=== PATIENT | male | born 1960 | race Caucasian/White ===

== ENCOUNTER 2016-06-25 17:04 | Inpatient (IN) | payer MEDICARE ==
--- NOTE | ~2016-06-25 | CT2 ---
[facility] A Service of [facility] RADIOLOGY TEXT RESULTS PATIENT: SOFIE COLEMAN LOCATION: [facility] 342- : 58 UNIT #: [id number] AGE: [address]: Chelsey Kwong MD SEX: M ORDER DR: [id number] [facility] [address] [place], [place] [address] [id number] I MR#: [id number] Acc #: [id number] NAME: SOFIE COLEMAN : 1960 SEX: M STUDY DATE/TIME: 06/25/2016 18:13 UNIT: A PCU ROOM: [facility] STUDY DESCRIPTION: CT Abd and Pelv W Cont Attending Physician: Chula Colvin M.D. Ordering Physician: Prema Sellers M.D. Primary Care Physician: Phoebe Morales M.D. MEDICAL IMAGING REPORT This report is preliminary unless electronic signature is present EXAM CT abdomen and pelvis INDICATIONS Diffuse lymphadenopathy. Pelvic mass. Left inguinal lymphadenopathy. TECHNIQUE CT of the abdomen and pelvis with 100 mL Isovue-370 IV contrast. Coronal and sagittal reconstructions were obtained. This CT exam was performed with one or more of the following radiation dose reduction techniques: automatic exposure control, adjustment of mA and/or kV according to patient size, and iterative reconstruction. COMPARISON None available. FINDINGS There is diffuse lymphadenopathy in the upper abdomen. An index periportal lymph node measures 4.4 x 3.2 cm. There are several retrocrural lymph nodes. The spleen is normal in size. The lymphadenopathy extends in the retroperitoneum. Retroperitoneal lymph node near the level of the left renal veins measures 2.3 x 1.7 cm. There is no focal abnormality in the liver, pancreas, or adrenal glands. There are multiple low-attenuation lesions scattered throughout the kidney. The largest measures up to 3.6 cm. These do not have imaging characteristics of a benign cysts. The right kidney is either congenitally atrophic or surgically absent. There is bulky mesenteric lymph nodes as well. Index mesenteric lymph node in the right abdomen measures 2.1 x 1.9 cm. [facility] A Service of [facility] RADIOLOGY TEXT RESULTS PATIENT: SOFIE COLEMAN LOCATION: [facility] 342-01 : 58 UNIT #: [id number] AGE: [address]: Chelsey Kwong MD SEX: M ORDER DR: Pelvis: There is bulky pelvic lymphadenopathy, particularly on the left. A left external iliac lymph node measures 4.4 x 3.0 cm. A left inguinal lymph node measures 4.7 x 4.1 cm. No acute osseous abnormalities. IMPRESSION 1. Bulky lymphadenopathy throughout the abdomen and pelvis likely represents a lymphoma, however, diffuse metastatic disease is additional consideration. If biopsy is appropriate, consider a biopsy of the supraclavicular or left inguinal lymph nodes. 2. Multiple low-attenuation lesions throughout the left kidney. These do not have imaging appearance typical for benign cysts, however incompletely characterized. This could represent lymphomatous involvement of the left kidney or be secondary to a proteinaceous hemorrhagic cyst. Benign etiology is considered less likely. 3. Right kidney is either congenitally atrophic or surgically absent. Dictated by... Raf Gonzales M.D. THIS IS AN ELECTRONICALLY VERIFIED REPORT Raf Gonzales M.D. at 06/26/2016 2:30 PM DAVIS/maegan TD: 06/25/2016 23:19 JOB #: [id number] MEDICAL IMAGING REPORT Page 1 of 1 COPY
--- NOTE | ~2016-06-25 | CO ---
Unit #: [id number] #: [id number] Patient: SOFIE COLEMAN [id number] [address] [place], [place] [address] [id number] I MR#: [id number] NAME: SOFIE COLEMAN ROOM: 342 Age: 56 Sex: M Admission Date: 06/25/2016 : 1960 Attending Physician: Chelsey Kwong M.D. Primary Care Physician: Phoebe Morales M.D. Consultation Date: 06/26/2016 CONSULTATION REPORT REASON FOR CONSULTATION Massive lymphadenopathy. Please evaluate. HISTORY OF PRESENT ILLNESS The patient is a 56-year-old gentleman whom I had seen December last year for elevated white count and workup was negative. At that time he had no adenopathy. He presents now with supraclavicular small axillary and large groin lymph nodes, about 10 pound weight loss and no night sweats or very minimal night sweats. We were requested to evaluate. PAST MEDICAL HISTORY 1. Coronary artery disease. 2. Status post two vessel coronary artery bypass grafting. 3. Hypertension. 4. Depression. 5. Hyperlipidemia. PAST SURGICAL HISTORY 1. Cholecystectomy. 2. Hernia. 3. Appendectomy. SOCIAL HISTORY The patient smokes less than a pack per day, multiple decades. No alcohol usage. No drug usage. Lives with daughter and granddaughter. FAMILY HISTORY Negative for unusual tumors or hereditary tumors. Positive for hypertension. ALLERGIES No known drug allergies. CHRONIC MEDICATIONS 1. Synthroid. 2. Lipitor. 3. Acyclovir. 4. Plavix. 5. Avoca. 6. Metoprolol. 7. Zoloft. 8. Zanaflex. REVIEW OF SYSTEMS Unit #: [id number] #: [id number] Patient: SOFIE COLEMAN Mainly tiredness, decreased appetite, some night sweats and weight loss and masses he has felt in the neck, mainly in the last two to four weeks. Otherwise six or eight systems were within normal limits. PHYSICAL EXAMINATION LYMPH: Very large supraclavicular and cervical lymph nodes. LUNGS: Clear. HEART: Distant S1 and S2. ABDOMEN: No organomegaly. EXTREMITIES: Left groin lymph node is palpable. Right groin is not palpable. NEUROLOGIC: grossly intact. RECTAL: Not performed. DIAGNOSTIC STUDIES IMAGING: CT scans were reviewed. CT scan of the head done 06/25/2016 showed no evidence of metastatic disease, so essentially it was normal. CT scan of the neck, massive lymphadenopathy asymmetrical, worse on the right than the left. CT scan of the chest was done as CT angiogram and it shows negative for pulmonary embolus, diffuse bulky lymphadenopathy, and a 1.4 cm pulmonary nodule in the right lower lobe. Trace right pleural effusion. CT abdomen bulky lymphadenopathy throughout the abdomen and pelvis. Most importantly there is a 4.7 x 4.1 cm left inguinal lymph node which is palpable. Right-sided iliac lymph nodes. LABORATORY: Glucose 82, BUN 19, creatinine 1.1, sodium 128, potassium 4.5, chloride 99, CO2 18, total bilirubin 0.9, AST 18, ALT 15, alkaline phosphatase 78. CBC, hemoglobin 9.5, hematocrit 30.6, white blood cell count 20.9, MCV 74.6, platelets 543,000. ASSESSMENT This 56-year-old gentleman with massive adenopathy, minimal night sweats, 10 pound weight loss, most probably has a non-Hodgkin lymphoma or Hodgkin disease. PLAN Will approach the left inguinal lymph node with a fine-needle aspirate, flow cytometry. If that tells us what we need to know we will stop there, but in case it does not, then we will need a left inguinal lymph node biopsy in case it is Hodgkin disease. All of this was discussed with the patient. He is in full agreement. Dictated by... Ramone Dan/ella TD: 06/26/2016 15:15 JOB #: [id number] CC: Arnold Smith M.D. Unit #: [id number] #: [id number] Patient: SOFIE COLEMAN CONSULTATION REPORT Page 1 of 1 X Alex Del Rio MD CONSULTATION REPORT
--- NOTE | ~2016-06-25 | MAL ---
[facility] Nutrition Therapy DATE: 06/29/16 Patient: SOFIE COLEMAN Physician: ARGENIS Address: [address] [place] [address] Room/Bed: [address] [place] [address], [facility], Zip: [place] [address] Admit Date: 06/25/16 Date of : 58 Height: 5 10 Weight: 149 68 PHYSICAL MALNUTRITION ASSESSMENT Energy Intake, Acute Injury/Illness Moderately reduced: <75% needs for >7 days Energy Intake Comment: Poor intake and decreased appetite x 2 weeks LOOP CUTTER Weight Loss, Acute Injury/Illness Severe: >2% past 1 week Weight Loss, Comment: 5.5% body weight loss in 13 days LOOP CUTTER Physical Findings Body Fat and Muscle Mass Moderate: (suggested) some loss of subqutaneous fat and/or muscle mass Physical Findings Functional Capacity Moderate: (suggested) reduced functional capacity Physical Findings Comment: Slight temporal wasting noted Malnutrition Survey Results: Malnutrition identified Malnutrition Etiology Summary: Acute injury/illness moderate Malnutrition Survey Comment: See follow-up note dated today for details and recs. Respectfully, Marilee Morrison RD, LD [facility] and Nutritional Services [facility] cc: client file
--- NOTE | ~2016-06-25 | CT71 ---
[facility] A Service of [facility] RADIOLOGY TEXT RESULTS PATIENT: SOFIE COLEMAN LOCATION: [facility] 342 : 58 UNIT #: [id number] AGE: [address]: Chula Colvin MD SEX: M ORDER DR: [id number] [place] [id number] [facility]. [place], [place] [address] [id number] I MR#: [id number] Acc #: [id number] NAME: SOFIE COLEMAN : 1960 SEX: M STUDY DATE/TIME: 06/25/2016 18:04 UNIT: [address] ROOM: [facility] STUDY DESCRIPTION: CT Head Wo Contrast Attending Physician: Chula Colvin M.D. Ordering Physician: Prema Sellers M.D. Primary Care Physician: Phoebe Morales M.D. MEDICAL IMAGING REPORT This report is preliminary unless electronic signature is present EXAM CT brain without contrast, 06/25/2016 HISTORY Headache and dizzy today. Weakness. This CT exam was performed with one or more of the following radiation dose reduction techniques: automatic exposure control, adjustment of mA and/or kV according to patient size, and iterative reconstruction. FINDINGS Axial noncontrast images were obtained from the skull base to the vertex. Ventricular size and configuration are normal. There is no evidence of acute infarct or hemorrhage. There are no extra-axial fluid collections. No mass lesion or mass effect is seen. There are no skull fractures. IMPRESSION Normal noncontrast head CT. Dictated by... Luis M Machado M.D. THIS IS AN ELECTRONICALLY VERIFIED REPORT Luis M Machado M.D. at 06/25/2016 10:37 PM CORONA/keegan TD: 06/25/2016 22:28 JOB #: [id number] MEDICAL IMAGING REPORT [facility] A Service of [facility] RADIOLOGY TEXT RESULTS PATIENT: SOFIE COLEMAN LOCATION: [facility] 342- : 58 UNIT #: [id number] AGE: [address]: Chula Colvin MD SEX: M ORDER DR: Page 1 of 1 COPY
--- NOTE | ~2016-06-25 | XA55 ---
[facility] A Service of [facility] & [facility] RADIOLOGY TEXT RESULTS PATIENT: SOFIE RAND LOCATION: [facility] 342-01 : 58 UNIT #: [id number] AGE: [address]: Chelsey Kwong MD SEX: M ORDER DR: [id number] [facility]. [place], [place] [address] [id number] I MR#: [id number] Acc #: [id number] NAME: SOFIE RAND : 1960 SEX: M STUDY DATE/TIME: 06/26/2016 15:29 UNIT: [address] ROOM: [facility] STUDY DESCRIPTION: XA BX Lymph Node Superficial Attending Physician: Chelsey Kwong M.D. Ordering Physician: Chula Colvin M.D. Primary Care Physician: Phoebe Morales M.D. MEDICAL IMAGING REPORT This report is preliminary unless electronic signature is present EXAM Ultrasound guided left inguinal lymph node biopsy INDICATION Mr. Rand is a 56-year-old gentleman who underwent CT angiogram of the chest June 25, 2016 which showed extensive lymphadenopathy. Subsequent CT of the abdomen and pelvis also showed extensive adenopathy including an enlarged left inguinal lymph node. He has been referred for biopsy. PROCEDURE The risks, benefits, and alternatives to the procedure were explained to the patient, and signed, informed consent was obtained. Patient was placed supine on the stretcher. A preliminary ultrasound of the left inguinal region was performed which demonstrated a very large node. This image was permanently saved. The overlying skin was marked. Patient was prepped and draped in the usual sterile fashion. Time-out was performed as per protocol. Skin and subcutaneous tissues were anesthetized with buffered lidocaine and a total of 3 separate passes were made into the lesion under direct sterile sonographic guidance. Specimens were given to a development technologist. Manual pressure was then applied until hemostasis was obtained. Patient tolerated the procedure well and there were no immediate complications. IMPRESSION Technically successful ultrasound guided left lower lymph node biopsy as noted above. Ultrasound was used during the procedure and permanent images were saved. Dictated by... Shakila Milan M.D. THIS IS AN ELECTRONICALLY VERIFIED REPORT Shakila Milan M.D. at 06/28/2016 6:30 PM [facility] A Service of [facility] RADIOLOGY TEXT RESULTS PATIENT: SOFIE RAND LOCATION: [facility] 342-01 : 58 UNIT #: [id number] AGE: [address]: Chelsey Kwong MD SEX: M ORDER DR: Margarita TD: 06/28/2016 12:48 JOB #: [id number] MEDICAL IMAGING REPORT Page 1 of 1 COPY
--- NOTE | ~2016-06-25 | CT114 ---
[facility] A Service of [facility] & [facility] RADIOLOGY TEXT RESULTS PATIENT: SOFIE COLEMAN LOCATION: A 342-01 : 58 UNIT #: [id number] AGE: [address]: Chelsey Kwong MD SEX: M ORDER DR: [id number] [facility] [address] [facility]. [place], [place] [address] [id number] E MR#: [id number] Acc #: [id number] NAME: SOFIE COLEMAN : 1960 SEX: M STUDY DATE/TIME: 06/25/2016 18:13 UNIT: [facility] ROOM: STUDY DESCRIPTION: CT Soft Tissue Neck W Cont Attending Physician: Arnold Smith M.D. Ordering Physician: Prema Sellers M.D. Primary Care Physician: Phoebe Morales M.D. MEDICAL IMAGING REPORT This report is preliminary unless electronic signature is present EXAM CT neck soft tissue HISTORY Diffuse lymphadenopathy. Evaluate for mass. Sent in by primary care physician. Weakness, loss of appetite, lumps on neck. Mass in hip joint today. TECHNIQUE This CT exam was performed with one or more of the following radiation dose reduction techniques: automatic exposure control, adjustment of mA and/or kV according to patient size, and iterative reconstruction. COMMENT CT of the neck soft tissue performed during the intravenous administration of 100 mL of Isovue-370. It appears the study has been obtained at the same time as imaging of the chest, abdomen and pelvis. Please refer those separate reports. Specifically, please refer to the chest CT for description of the mass/adenopathy in the chest. There is massive lymphadenopathy present. In the neck lymphadenopathy is appreciated along the bilateral jugular chains asymmetrically worse on the right side than the left side. The largest lymph node mass on the right side measures about 3.5 x 6.5 cm axial plane and about 5.1 cm SI dimension. The lymphadenopathy is fairly matted and discrete nodes appear to be growing together. This largest lymph node mass is approximately at the level 3-4 jugular chain on the right side. There is also a large lymph node mass extending into the upper chest seen in the right-sided tracheoesophageal groove. It is contiguous with the matted adenopathy in the upper chest. Largest lymph node left-side neck supraclavicular about 2.4 cm long axis dimension. Thyroid gland is distorted by the massive adenopathy. There is some heterogeneity of the posterior right lobe of the thyroid gland which is nonspecific. The submandibular glands and STS. [facility] A Service of [facility] RADIOLOGY TEXT RESULTS PATIENT: SOFIE COLEMAN LOCATION: [facility] 342-01 : 58 UNIT #: [id number] AGE: [address]: Chelsey Kwong MD SEX: M ORDER DR: parotid glands are unremarkable. There are vascular calcifications base of the brain. Epiglottis is well defined. The massive lymphadenopathy results in some distortion of the airway and displacement of the larynx and trachea towards the left side. I suspect the epicenter of the patient's pathology is not in the neck, however and please correlate further with tissue diagnosis. The main considerations would be extensive lymphomatous involvement or other metastatic adenopathy from an unknown primary. The esophagus is also displaced to the left side by the adenopathy. Some vascular calcifications at carotid bifurcations with probably some mild stenosis at least on the left. Mild reversal of cervical lordosis. Patient has had prior cardiac surgery. IMPRESSION There is massive lymphadenopathy in the neck asymmetrically worse on the right than left with largest lymph node mass right neck about the level 3/level 4 jugular chain to the supraclavicular area extending into the massive adenopathy in the visualized upper chest. It measures about 6.5 x 3.5 cm in the axial plane and at least 5.1 cm in dimension. Discrete measurements are difficult since the lymph nodes are growing into one another. The lymphadenopathy results in mass effect upon the trachea, airway and esophagus such that there is displacement of these structures to the left side. The airway is still patent. There is some mild heterogeneity in the posterior aspect of the right lobe of the thyroid gland which is nonspecific. This is probably not clinically significant. The appearance is most concerning for lymphoma or possibly massive metastatic lymphadenopathy from some other unknown primary. Tissue diagnosis is recommended. STAT * RESULT Dictated by... Rosita Natarajan M.D. THIS IS AN ELECTRONICALLY VERIFIED REPORT Rosita Natarajan M.D. at 06/27/2016 8:15 AM Celena TD: 06/25/2016 19:22 JOB #: [id number] MEDICAL IMAGING REPORT Page 1 of 1 COPY
--- NOTE | ~2016-06-25 | CT16 ---
[facility] A Service of [facility] RADIOLOGY TEXT RESULTS PATIENT: SOFIE COLEMAN LOCATION: [facility] 342-01 : 58 UNIT #: [id number] AGE: [address]: Chelsey Kwong MD SEX: M ORDER DR: [id number] [facility] [address] [place], [place] [address] [id number] I MR#: [id number] Acc #: [id number] NAME: SOFIE COLEMAN : 1960 SEX: M STUDY DATE/TIME: 06/25/2016 18:13 UNIT: [address] ROOM: [facility] STUDY DESCRIPTION: CT Angio Chest for PE Attending Physician: Chula Colvin M.D. Ordering Physician: Prema Sellers M.D. Primary Care Physician: Phoebe Morales M.D. MEDICAL IMAGING REPORT This report is preliminary unless electronic signature is present EXAM CTA chest, 06/25/2016 INDICATION Diffuse lymphadenopathy. Observation for diffuse metastatic disease. TECHNIQUE CT angiography of the chest utilizing 100 mL Isovue-370 IV contrast. Coronal 3-D MIP reconstructions and standard sagittal reconstructions were obtained. This CT exam was performed with one or more of the following radiation dose reduction techniques: automatic exposure control, adjustment of mA and/or kV according to patient size, and iterative reconstruction. COMPARISON Chest radiograph dated 12/19/2015 and lung cancer screening dated 08/26/2015. FINDINGS There is bulky supraclavicular lymphadenopathy. Please correlate with the CT of the neck soft tissues for details. There is a large bulky superior mediastinal lymph node conglomeration. This conglomeration measures 10 cm x 9.6 cm. There is a left superior mediastinal lymph node conglomeration measuring 6.2 cm x 4.9 cm. This extends into the middle mediastinum. There is enlarged right and left hilar lymphadenopathy. Index right hilar lymph node is in the infrahilar region measuring 4.1 cm x 2.7 cm. A left hilar lymph node measures 3.2 cm x 2.6 cm. Subcarinal lymph node conglomeration measures 5 cm short axis. There is mildly enlarged bilateral axillary lymph nodes. There is STS. [facility] A Service of [facility] RADIOLOGY TEXT RESULTS PATIENT: SOFIE COLEMAN LOCATION: [facility] 342-01 : 58 UNIT #: [id number] AGE: [address]: Chelsey Kwong MD SEX: M ORDER DR: enlarged inferior mammary lymph nodes on the right. There is no pulmonary embolus. There is a right lower lobe pulmonary nodule measuring 1.4 cm. There is severe emphysema. There is no acute osseous abnormalities. The patient has had prior median sternotomy. IMPRESSION 1. Negative for pulmonary embolus. 2. Diffuse bulky lymphadenopathy throughout the chest. Findings are likely due to a lymphoma, however, diffuse metastatic disease could potentially have this appearance. 3. A 1.4 cm pulmonary nodule in the right lower lobe is likely related to the lymphadenopathy. 4. Emphysema. 5. Trace right pleural effusion. 6. Please refer to separately dictated report for details on the neck and on the abdomen. Dictated by... Raf Gonzales M.D. THIS IS AN ELECTRONICALLY VERIFIED REPORT Raf Gonzales M.D. at 06/26/2016 2:30 PM DAVIS/keegan TD: 06/25/2016 23:05 JOB #: [id number] MEDICAL IMAGING REPORT Page 1 of 1 COPY
--- NOTE | ~2016-06-25 | FU ---
[facility] Nutrition Therapy DATE: 06/29/16 Patient: SOFIE COLEMAN Physician: ARGENIS Address: [address] [place] [address] Room/Bed: [address] [place] [address], [facility], Zip: [place] [address] Admit Date: 06/25/16 Date of : 58 Height: 5 10 Weight: 149 68 NUTRITION MONITORING/FOLLOW-UP: Reason: Nutrition follow-up Admitting Dx: 56 y/o male admitted with newly diagnosed lymphoma, weight loss, dysphagia Anthropometrics: Ht: 70", admission wt: 66 kg, current wt: 68 kg, BMI: 21 (based on admission wt; normal) Labs: Na 129 Meds: Zofran, Pepcid, laxative of choice, Synthroid, NSIV w/ KCL @ 150 ml/hr, KCL, Na bicarb, FeSO4 GI: LBM 4/5 Skin: Scars noted, biopsy site L thigh, no edema Estimated Nutrition Needs: Increased due to newly diagnosed lymphoma, weight loss Assessment: Chart reviewed, events noted. Patient positive for lymphoma per biopsy, chemo/treatment plan pending. Weight up 2 kg since admission. Patient is on a regular diet with 1800 ml fluid restriction, no ONS have been ordered despite RD recs. Patient reports poor appetite and decreased PO intake, unable to tell me exact % meal intake. Reports his dysphagia is more like throat soreness and is related to his swollen lymph nodes crowding his voice box, has quite a hoarse voice. But he denies chewing difficulty, says MEDICAL BILLING INSTRUCTOR has not evaluated him and I do not see a note from them in his chart, however I do not think he needs an eval at this time. He is willing to try Ensure- will order for BID due to fluid restriction. Gave him new supplement coupons that were not and encouraged him to drink BID at home, states he may be leaving today or tomorrow. Also encouraged small frequent meals consisting of soft and mainly cold foods until lymph node swelling decreases. Moderate PCM noted by MD in patient's chart, RD agrees. Mild temporal wasting noted. Working towards meeting nutritional goals, nutrition dx remains with improvement. Dx: Unintentional weight loss r/t poor oral intake, decreased appetite, cancer dx AEB patient report, diagnosis of moderate PCM, 8 lb weight loss in 13 days (5.5% loss; severe) - REMAINS, IMPROVEMENT NOTING PO DIET ADVANCEMENT, ADDITION OF ONS AND 2KG WEIGHT GAIN SINCE ADMISSION Intervention: Vanilla Ensure BID, fluids per MD (1800 ml restriction) Monitoring, Evaluation and Goals: WORKING TOWARDS GOALS [facility] Nutrition Therapy DATE: 06/29/16 Patient: SOFIE COLEMAN Physician: ARGENIS Address: [address] [place] [address] Room/Bed: [address] [place] [address], Zip: [place] [address] Admit Date: 06/25/16 Date of : 58 Height: 5 10 Weight: 149 68 1. Increase in oral intake > 50-75% of meals with no c/o chewing/swallowing difficulties. 2. Improvement in sodium lab. 3. Prevent further unintentional weight loss. Monitor: Per protocol, criteria to determine if above goals met Recommendations: 1. Continue regular diet, 1800 ml fluid restriction per MD until hyponatremia resolves. Encourage small frequent meals, particularly soft and mainly cold foods due to throat irritation and to ensure adequate kcal intake. 2. RD ordered vanilla Ensure BID to increase oral kcal/protein intake. Gave patient coupons. 3. Agree with MD documentation of moderate protein calorie malnutrition. 4. Please weigh q 3 days for monitoring purposes. Status: Mild-moderate nutrition risk Respectfully, Marilee Morrison, LIBBY, LD Food and Nutritional Services [facility] cc: client file
--- NOTE | ~2016-06-25 | HP ---
Unit #: [id number] #: [id number] Patient: SOFIE COLEMAN [id number] [address] [place], [place] [address] [id number] MR#: [id number] NAME: SOFIE COLEMAN ROOM: Age: 56 Sex: M Admission Date: 06/25/2016 : 1960 Attending Physician: Arnold Smith M.D. Primary Care Physician: Phoebe Morales M.D. HISTORY AND PHYSICAL CHIEF COMPLAINT Adenopathy, weight loss, difficulty swallowing. HISTORY This pleasant 56-year-old male with CAD, hypothyroidism, hypertension, is admitted for adenopathy, weight loss, difficulty swallowing. Patient began to have some symptoms about a year ago and was referred to a restaurant crew person who diagnosed him with pseudogout, treated him with prednisone with improvement of his symptoms. However, recently he developed an increasing mass in the right lower neck and the left groin. States he is having some difficulty swallowing solid foods, and notes some anorexia, nausea and weight loss, also intermittent night sweats. He was again placed on a course of prednisone without improvement. He presents to this emergency department where he has a very large right supraclavicular lymph node and large left inguinal lymph node. CT scans performed show bulky adenopathy throughout the chest, abdomen, into the neck, most likely consistent with lymphoma. In the ER the patient was bolused with 2 L of saline, given morphine and Zofran. PAST MEDICAL HISTORY 1. CAD with previous MIs requiring multiple PCIs and stents. Patient is status post two-vessel CABG 2008. 2. Hypothyroidism. 3. Hyperlipidemia. 4. Hypertension. 5. Depression. 6. Cholecystectomy. 7. Back surgery x2. 8. Hernia repair. 9. Appendectomy. ALLERGIES No known drug allergies. HOME MEDICATIONS 1. Acyclovir 400 mg b.i.d. 2. Lipitor 40 mg daily. 3. Plavix 75 mg daily. 4. Bosler 5/325 q.i.d. 5. Synthroid 0.137 mcg daily. 6. Lisinopril 2.5 mg daily. 7. Metoprolol 25 mg daily. Unit #: [id number] #: [id number] Patient: SOFIE COLEMAN 8. Patient is finishing a course of prednisone. 9. Zoloft 100 mg two tablets daily. 10. Zanaflex 4 mg t.i.d. FAMILY HISTORY Hypertension, depression, CAD, diabetes mellitus. SOCIAL HISTORY The patient lives with his daughter and granddaughter. He smokes less than one pack per day of tobacco, seldom drinks alcohol. REVIEW OF SYSTEMS Notable for some difficulty swallowing, occasional difficulty breathing, weight loss, nausea, anorexia, night sweats, adenopathy, CAD, hypothyroidism, hyperlipidemia, hypertension, depression and abovementioned surgeries. All other systems were reviewed and are negative. PHYSICAL EXAMINATION GENERAL: Pleasant 56-year-old male currently in no acute distress. VITAL SIGNS: Temperature 97.8. Pulse 106. Respirations 16. Blood pressure 138/96. O2 saturation is 98% on room air. HEENT: Eyes PERRLA, extraocular muscles are intact. Pharynx reveals thrush. NECK: Neck is supple. There is cervical adenopathy, particularly on the right which extends to the right supraclavicular region. CHEST: A few crackles. CARDIAC: Normal S1 and S2, without definite murmur. ABDOMEN: Bowel sounds are present. No hepatosplenomegaly, tenderness or masses. EXTREMITIES: With a large left inguinal adenopathy. No pedal edema. Pedal pulses are diminished. NEUROLOGIC EXAM: Patient is awake, alert, oriented. Cranial nerves are intact. Equal strength throughout. DIAGNOSTIC STUDIES LABORATORY: Admission labs: Hematocrit is 33, white blood count 20.8, platelet count is 667, three bands are noted. Cardiac markers are negative. SMA-12: Sodium 125, chloride 92, CO2 21, calcium 11.1, albumin 3.3, alkaline phosphatase 95. Urinalysis trace protein. IMAGING: CT scan of the neck soft tissues shows massive lymphadenopathy in the neck, asymmetrically worse on the right than left, with a mass effect on the trachea, airway and esophagus so there is displacement of these structures to the left side. The airway is still patent. Concerning for lymphoma. CTA of the chest negative for PE. Diffuse bulky lymphadenopathy suspicious for lymphoma. A 1.4 cm right lower lobe nodule. CT scan of the abdomen and pelvis shows bulky adenopathy throughout likely lymphoma versus diffuse metastatic disease. Patient has congenital atrophic right kidney. Left kidney does have multiple lesions which could be lymphoma or proteinaceous or hemorrhagic cysts. CARDIOVASCULAR: EKG: Sinus tachycardia, rate 103, with Qs noted throughout the anterolateral leads. Tiny Qs inferiorly. Unit #: [id number] #: [id number] Patient: SOFIE COLEMAN ASSESSMENT 1. Bulky lymphadenopathy, likely new diagnosis of lymphoma. 2. Coronary artery disease, status post percutaneous coronary intervention and stents, status post coronary artery bypass graft following myocardial infarction. 3. Congenital atrophy right kidney and abnormal left kidney which may represent lymphoma. 4. Tobacco abuse. 5. Thrush while on prednisone. 6. Hypothyroidism. 7. Hypertension. 8. Depression. 9. Mild hypercalcemia, likely related to malignancy. 10. Likely hypovolemic hyponatremia. PLANS 1. Biopsy left inguinal lymph node. 2. IV fluids and supportive treatment. 3. Obtain echo. 4. SCDs for DVT prophylaxis. 5. Oncology consultation. 6. Nystatin swish and swallow and Diflucan. 7. Check urine sodium and thyroid function tests. 8. Repeat labs in the morning and check ionized calcium. Dictated by Chula Colvin M.D. AML/cf TD: 06/25/2016 21:03 JOB #: [id number] HISTORY AND PHYSICAL Page 1 of 1 X Chula Colvin MD X HISTORY AND PHYSICAL
--- NOTE | ~2016-06-25 | A ---
[facility] Nutrition Therapy DATE: 06/26/16 Patient: SOFIE COLEMAN Physician: ARGENIS Address: [address] [place] [address] ROAD Room/Bed: [address] [place] [address], Zip: [place] [address] Admit Date: 06/25/16 Date of : [birth year] Height: 5 10 Weight: 145 66 NUTRITIONAL ASSESSMENT: REASON: 3 points nutrition screen risk RE: 10# weight loss and eating poorly 56 yo male admitted for questionable new lymphoma, adenopathy, weight loss, difficulty swallowing, mass left lower neck PMH: CAD, hypothyroidism, HTN, HLD, depression, cholecystectomy, hernia repair, appendectomy Anthropometrics: Ht: 5'10" Wt: 66 kg BMI: 20.9 IBW: 75.4 kg, 88% IBW Labs: Na+ 128 Cl- 99 Alb 2.7 Meds: Sodium bicarbonate, D5%, lipitor, zofran, laxative of choice, pepcid, NaCl, synthroid (PO) I/O & Bowel function: 0/2, last BM 4/3 Skin Integrity: Scar- legs/ chest/ back Edema: None noted Estimated Nutrition Needs: Increased due to low body weight Diet: NPO Assessment: Chart reviewed, events noted. Pt is currently NPO for lymph node biopsy. RD spoke with the pt at bedside. Pt reports 8# weight loss in the past 13 days (Since 06/13). This indicates ~5% weight loss in 13 days. Pt states that his weight loss is due to difficulty swallowing, and that he can only swallow soft foods such as Ensure, mashed potatoes. RD discussed the importance of adequate kcal/ protein intake, and the pt seemed to understand. RD recommendeding DOCUMENTATION CONSULTANT eval and discussed this with RN. Pt is agreeable to Ensure once his diet advances (if he can safely take thin liquids). Dx: Unintentional weight loss RT ? Dx, poor intake d/t dysphagia AEB pt reported poor intake and 8# weight loss in 13 days, 88% IBW. Intervention: 1. DOCUMENTATION CONSULTANT 2. Advance diet as tolerated [facility] Nutrition Therapy DATE: 06/26/16 Patient: SOFIE COLEMAN Physician: ARGENIS Address: [address] [place] [address] Room/Bed: [address] [place] [address], Zip: [place] [address] Admit Date: 06/25/16 Date of : 58 Height: 5 10 Weight: 145 66 Monitoring, Evaluation and Goals: 1. Oral intake; advance diet, tolerate >50-75% meals 2. Labs; WNL 3. Weight; prevent further weight loss, preserve lean body mass Recommendations: 1. DOCUMENTATION CONSULTANT evaluation due to noted dysphagia. 2. Advance diet per DOCUMENTATION CONSULTANT recommendations once medically feasible + Ensure (vanilla or chocolate) TID if appropriate per DOCUMENTATION CONSULTANT recommendations. Pt is at moderate nutritional risk. RD will follow hospital course. Respectfully, ENEIDA LEWIS RD, LD Food and Nutritional Services [facility] cc: client file
--- NOTE | ~2016-06-25 | EKG ---
PATIENT: SOFIE COLEMAN UNIT #: [id number] Ventricular Rate: 103 BPM Atrial Rate: 103 BPM P-R Interval: 144 ms QRS Duration: 92 ms Q-T Interval: 334 ms QTC Calculation(Bezet): 437 ms P Denver: 63 degrees Calculated R Denver: 56 degrees Calculated T Denver: 96 degrees Diagnosis Line: Sinus tachycardia Diagnosis Line: Possible Left atrial enlargement Diagnosis Line: Possible Inferior infarct , age undetermined Diagnosis Line: Anterolateral infarct , age undetermined Diagnosis Line: Abnormal ECG Diagnosis Line: No previous ECGs available Diagnosis Line: Confirmed by CARINA BROUSSARD MD ([id number]) on 06/26/2016 Diagnosis Line: 11:19:25 PM INTERPRETING MD: BOBO ELLISON
--- NOTE | ~2016-06-25 | DS ---
Unit #: [id number] #: [id number] Patient: SOFIE RAND [id number] [address] [address] [id number] MR#: [id number] NAME: SOFIE RAND ROOM: 342 Age: 56 Sex: M Admission Date: 06/25/2016 : 1960 Discharge Date: 06/29/2016 Attending Physician: Chelsey Kwong M.D. Primary Care Physician: Phoebe Morales M.D. DISCHARGE SUMMARY PRINCIPAL DIAGNOSES 1. 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 2. Mild hyponatremia, secondary to syndrome of inappropriate secretion of antidiuretic hormone. Discharge sodium level 129. 3. Hypercalcemia. 4. Chronic kidney disease stage 3 with baseline creatinine of 1.1 with single kidney. 5. Iron-deficiency anemia. 6. Thrombocytosis, secondary to iron-deficiency anemia. 7. Vitamin B12 deficiency with vitamin B12 level of 234. 8. Moderate protein malnutrition. 9. Depression. 10. Hyperlipidemia. 11. Thrush for which patient has completed treatment. 12. Hypertension. 13. Hypothyroidism. 14. Coronary artery disease. 15. Tobaccoism. 16. Nonanion gap metabolic acidosis. SLINGER SEQUINS Dr. Del Rio, Oncology. PROCEDURES 1. Fine-needle aspiration of left inguinal biopsy. Pathology is consistent with nonHodgkin's lymphoma/diffuse large B cell lymphoma. 2. Two-dimensional echocardiogram on June 26, 2016, with ejection fraction of 55%. No valvular abnormalities. 3. CT head without contrast on June 25, 2016, which was normal. 4. CT of the soft tissue of the neck with contrast on June 25, 2016, with massive lymphadenopathy in the neck, asymmetrically worse on the right than the left. Largest lymph node is supraclavicular measuring 6.5 x 3.5 cm in the axial plane and 5 cm in dimension. 5. CT angiogram of the chest on June 25, 2016, which was negative for pulmonary embolism. There was diffuse bulky lymphadenopathy throughout the chest. A 1.4 cm pulmonary nodule on the right lower lobe is noted. Emphysema is noted. Trace right pleural effusion. 6. CT scan of the abdomen and pelvis with contrast on June 25, 2016, with bulky lymphadenopathy throughout the abdomen and pelvis. Multiple low-attenuation lesions throughout the left kidney. May represent lymphomatous involvement of left kidney. Right kidney is congenitally absent. Unit #: [id number] #: [id number] Patient: SOFIE RAND CLINICAL HISTORY AND HOSPITAL COURSE Mr. Rand is a very nice 56-year-old male, who presents to the emergency department with difficulty swallowing and increasing weakness. In the emergency department, the patient was found to have significant lymphadenopathy in the anterior cervical chain and supraclavicular. CT scan of the neck, the chest, and the abdomen was all done revealing significant diffuse bulky lymphadenopathy. In conjunction with these findings, the patient was found to have significant leukocytosis with a white blood cell count of 21,000. He was also mildly anemic and had thrombocytosis with a platelet count of 667,000. Creatinine was also mildly elevated. The patient was subsequently admitted. Dr. Del Rio was consulted given concerns about lymphoma. The patient underwent fine-needle aspiration of left inguinal lymph node and pathology is revealing a nonHodgkin's lymphoma. The patient was started on IV steroids and there were plans to initiate CHOP therapy during hospitalization. Unfortunately, there were no nurses to administer chemotherapy. The patient is feeling better after being on steroid therapy. On day of discharge, white blood cell count is down to 17.3. He was found to have mild iron-deficiency anemia in addition to vitamin E79-mmzsips anemia and these will be both be supplemented upon discharge. The patient's other significant finding was mild hyponatremia. On day of discharge, sodium is 129. 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 The patient's other chronic condition remains stable. He will be discharged home today with followup on Saturday with Dr. Del Rio to initiate chemotherapy. DISCHARGE CONDITION Stable. DISCHARGE STATUS Discharge to home. DISCHARGE MEDICATIONS 1. Sodium bicarbonate 650 mg p.o. b.i.d. 2. Zoloft 200 mg daily. 3. Atorvastatin 40 mg at bedtime. 4. Acyclovir 400 mg b.i.d. 5. Toprol XL 25 mg daily. 6. Lisinopril 2.5 mg daily. 7. Ferrous gluconate 324 mg b.i.d. 8. Mahomet 5/325 one tablet p.o. four times daily. 9. Plavix 75 mg daily. 10. Levothyroxine 137 mcg p.o. daily. 11. Vitamin B12 at 1000 mcg p.o. daily. 12. Prednisone 20 mg tablets three tablets p.o. daily. DISCHARGE INSTRUCTIONS 1. He can follow a heart-healthy diet. 2. He can increase his activity as tolerated. 3. He is to refrain from any further tobacco use and should monitor his fluid intake to approximately 1800 mL daily. FOLLOWUP The patient has a followup appointment with Dr. Del Rio on Saturday, July 02, 2016 to initiate chemotherapy in the office. Unit #: [id number] #: [id number] Patient: SOFIE RAND Time spent on discharge, 34 minutes. Dictated by... Chelsey Kwong M.D. HELGA/ranjana TD: 07/01/2016 14:59 JOB #: [id number] DISCHARGE SUMMARY Page 1 of 1 X Chelsey Kwong MD X DISCHARGE SUMMARY
[2016-06-25 16:33] LABS: BASOPHIL# 0.1 X10e3 (0-0.3); BASOPHIL% 0.5 % (0-2.5); EOSINOPHIL# 0.1 X10e3 (0-0.7); EOSINOPHIL% 0.4 % (0.0-7.0); HEMOGLOBIN 10.6 gm/dL (13.0-16.0); LYMPHOCYTE# 0.9 X10e3 (1.0-3.5); LYMPHOCYTE% 4.2 % (17.0-45.0); MEAN CELL VOLUME 73.5 FL (83-96); MEAN CORPUSCULAR HEMOGLOBIN 23.6 PG (28-34); MEAN CORPUSCULAR HGB CONC 32.2 g/dL (30-36); MEAN PLATELET VOLUME 6.4 FL (6.5-11.5); MONOCYTE# 0.8 X10e3 (0-1.0); MONOCYTE% 4.1 % (3.0-12.0); NEUTROPHIL# 18.9 X10e3 (1.5-7.1); NEUTROPHIL% 90.8 % (40-75); PLATELET COUNT 664 X10e3 (140-420); RED BLOOD COUNT 4.49 X10e (3.90-5.60); RED CELL DISTRIBUTION WIDTH 17.4 % (11.0-15.5); WHITE BLOOD COUNT 20.8 X10e3 (4.0-10.5)
[2016-06-25 16:35] LABS: POC - CKMB 1.5 ng/mL (0.0-7.9); POC - TROPONIN <0.05 ng/mL (<=0.05)
[2016-06-25 16:38] LABS: DIFF IND YES
[2016-06-25 16:53] LABS: PLATELET ESTIMATE INCREASED (NORMAL)
[2016-06-25 16:55] LABS: ANISOCYTOSIS SL; HYPOCHROMIA SL; MICROCYTOSIS SL
[2016-06-25 16:57] LABS: OVALOCYTES PRESENT; POIKILOCYTOSIS SL; SPHEROCYTE MOD
[2016-06-25 17:04] LABS: ALBUMIN SERUM 3.3 g/dL (3.5-5.0); ALKALINE PHOSPHATASE 95 U/L (32-92); ALT (SGPT) 18 U/L (10-40); AST (SGOT) 19 U/L (10-42); BILIRUBIN,TOTAL 0.2 mg/dL (0.2-2.0); BLOOD UREA NITROGEN 20 mg/dL (9-23); BUN/CREATININE RATIO 18.18; CALCIUM SERUM 11.1 mg/dL (8.4-10.2); CARBON DIOXIDE 21 mmol/L (22-31); CHLORIDE 92 mmol/L (100-111); CREATININE SERUM 1.1 mg/dL (0.6-1.4); GLOM FILT RATE Estimated 74.1 mL/min (>60); GLUCOSE FASTING 98 mg/dL (70-110); POTASSIUM 4.6 mmol/L (3.5-5.1); PROTEIN TOTAL SERUM 7.9 g/dL (6.0-8.3)
[~2016-06-25 17:04] MED LIST: ATORVASTATIN CA40 MG PO; CLOPIDOGREL75 MG PO; HYDROCODONE-APA1 T56 PO; METOPROLOL SUCC25 MG PO; PREDNISONE10 MG PO; SYNTHROID137 MCG PO; ZANAFLEX4 M1 PO; ZESTRIL2.5 M1 PO; ZOLOFT100 MG PO; ZOVIRAX400 MG PO
[2016-06-25 17:05] LABS: BILIRUBIN, DIRECT <0.1 mg/dL (0.0-0.2); BILIRUBIN,INDIRECT 0.1 mg/dL (0.0-0.9); SODIUM 125 mmol/L (135-145)
[2016-06-25 17:56] LABS: URINE SOURCE CLEAN CATCH
[2016-06-25 18:01] LABS: URINE APPEARANCE CLEAR; URINE BILIRUBIN NEG (NEG); URINE BLOOD NEG (NEG); URINE COLOR YELLOW; URINE GLUCOSE NEG (NEG); URINE KETONE NEG (NEG); URINE LEUKOCYTE ESTERASE NEG (NEG); URINE NITRATE NEG (NEG); URINE PH 5.5 (5-8); URINE PROTEIN TRACE (NEG); URINE SPECIFIC GRAVITY 1.023 (1.003-1.035)
[2016-06-25 18:02] LABS: POC - CKMB 1.2 ng/mL (0.0-7.9); POC - TROPONIN <0.05 ng/mL (<=0.05)
[2016-06-25 18:07] LABS: CULTURE INDICATED? NO
[2016-06-26 08:11] LABS: BASOPHIL# 0.1 X10e3 (0-0.3); BASOPHIL% 0.4 % (0-2.5); EOSINOPHIL# 0.1 X10e3 (0-0.7); EOSINOPHIL% 0.4 % (0.0-7.0); HEMATOCRIT 30.6 % (38.0-50.0); HEMOGLOBIN 9.5 gm/dL (13.0-16.0); LYMPHOCYTE# 0.8 X10e3 (1.0-3.5); LYMPHOCYTE% 3.8 % (17.0-45.0); MEAN CELL VOLUME 74.6 FL (83-96); MEAN CORPUSCULAR HEMOGLOBIN 23.2 PG (28-34); MEAN CORPUSCULAR HGB CONC 31.2 g/dL (30-36); MEAN PLATELET VOLUME 6.5 FL (6.5-11.5); MONOCYTE% 4.6 % (3.0-12.0); NEUTROPHIL# 18.9 X10e3 (1.5-7.1); NEUTROPHIL% 90.8 % (40-75); PLATELET COUNT 543 X10e3 (140-420); RED BLOOD COUNT 4.11 X10e (3.90-5.60); RED CELL DISTRIBUTION WIDTH 17.8 % (11.0-15.5); WHITE BLOOD COUNT 20.9 X10e3 (4.0-10.5)
[2016-06-26 08:12] LABS: DIFF IND NO
[2016-06-26 08:18] LABS: INR 1.1; PROTHROMBIN TIME (PATIENT) 11.4 SECONDS (9.6-11.5)
[2016-06-26 08:38] LABS: ALBUMIN SERUM 2.7 g/dL (3.5-5.0); BILIRUBIN,TOTAL 0.9 mg/dL (0.2-2.0); BUN/CREATININE RATIO 17.27; CALCIUM SERUM 10.1 mg/dL (8.4-10.2); CREATININE SERUM 1.1 mg/dL (0.6-1.4); GLOM FILT RATE Estimated 74.1 mL/min (>60); POTASSIUM 4.5 mmol/L (3.5-5.1); PROTEIN TOTAL SERUM 6.7 g/dL (6.0-8.3)
[2016-06-26 08:53] LABS: THYROID STIMULATING HORMONE 23.89 uIU/ml (0.34-5.60)
[2016-06-26 09:00] LABS: FREE THYROXIN (T4) 0.61 ng/dL (0.58-1.64)
[2016-06-26 11:34] LABS: IRON SERUM 14 ug/dL (45-182); TOTAL IRON BINDING CAPACITY 240 ug/dL (252-460); TRANSFERRIN 172 mg/dL (180-329); TRANSFERRIN SATURATION 6 % (20-50)
[2016-06-27 08:25] LABS: HEMATOCRIT 29.3 % (38.0-50.0); MEAN CELL VOLUME 76.1 FL (83-96); MEAN CORPUSCULAR HEMOGLOBIN 23.4 PG (28-34); MEAN CORPUSCULAR HGB CONC 30.8 g/dL (30-36); MEAN PLATELET VOLUME 6.9 FL (6.5-11.5); RED BLOOD COUNT 3.85 X10e (3.90-5.60); RED CELL DISTRIBUTION WIDTH 17.7 % (11.0-15.5); WHITE BLOOD COUNT 15.7 X10e3 (4.0-10.5)
[2016-06-27 08:44] LABS: CALCIUM SERUM 10.5 mg/dL (8.4-10.2); GLOM FILT RATE Estimated 83.2 mL/min (>60); POTASSIUM 4.7 mmol/L (3.5-5.1)
[2016-06-28 04:27] LABS: HEMATOCRIT 33.7 % (38.0-50.0); HEMOGLOBIN 10.4 gm/dL (13.0-16.0); MEAN CELL VOLUME 75.9 FL (83-96); MEAN CORPUSCULAR HEMOGLOBIN 23.4 PG (28-34); MEAN CORPUSCULAR HGB CONC 30.8 g/dL (30-36); MEAN PLATELET VOLUME 6.9 FL (6.5-11.5); RED BLOOD COUNT 4.43 X10e (3.90-5.60); RED CELL DISTRIBUTION WIDTH 18.1 % (11.0-15.5); WHITE BLOOD COUNT 16.4 X10e3 (4.0-10.5)
[2016-06-28 04:55] LABS: BILIRUBIN,TOTAL 0.4 mg/dL (0.2-2.0); CALCIUM SERUM 10.8 mg/dL (8.4-10.2); GLOM FILT RATE Estimated 83.2 mL/min (>60); POTASSIUM 4.8 mmol/L (3.5-5.1)
[2016-06-29 05:40] LABS: HEMATOCRIT 29.3 % (38.0-50.0); HEMOGLOBIN 9.2 gm/dL (13.0-16.0); MEAN CELL VOLUME 75.1 FL (83-96); MEAN CORPUSCULAR HEMOGLOBIN 23.4 PG (28-34); MEAN CORPUSCULAR HGB CONC 31.2 g/dL (30-36); RED BLOOD COUNT 3.91 X10e (3.90-5.60); WHITE BLOOD COUNT 17.3 X10e3 (4.0-10.5)
[2016-06-29 05:50] LABS: ALBUMIN SERUM 2.6 g/dL (3.5-5.0); BILIRUBIN,TOTAL 0.2 mg/dL (0.2-2.0); BUN/CREATININE RATIO 22.22; CALCIUM SERUM 9.1 mg/dL (8.4-10.2); CREATININE SERUM 0.9 mg/dL (0.6-1.4); GLOM FILT RATE Estimated 94.5 mL/min (>60); POTASSIUM 4.8 mmol/L (3.5-5.1); PROTEIN TOTAL SERUM 5.9 g/dL (6.0-8.3)
[2016-06-29] MEDS ORDERED: FERROUS GLUCON324 M1 PO (13:58)
[2016-06-29] MEDS ORDERED: SODIUM BICARBO650 MG PO (13:58)
[2016-06-29] MEDS ORDERED: DELTASONE20 MG PO (13:59)
== END 2016-06-29 16:03 | disposition home or self-care (01) | DRG 824 ==
LOC: CED 17:04 → CEDOF 21:00 → C3A PCU 22:19
PROVIDERS: Emergency Medicine; Internal Medicine; Internal Medicine Medical Oncology
PROC: B32TYZZ Computerized Tomography (CT Scan) of Left Pulmonary Artery using Other Contrast (ICD-10-PCS; 2016-06-25)
PROC: B32SYZZ Computerized Tomography (CT Scan) of Right Pulmonary Artery using Other Contrast (ICD-10-PCS; 2016-06-25)
PROC: 07BJ3ZX Excision of Left Inguinal Lymphatic, Percutaneous Approach, Diagnostic (ICD-10-PCS; principal; 2016-06-26)
PROC: B24BYZZ Ultrasonography of Heart with Aorta using Other Contrast (ICD-10-PCS; 2016-06-26)
DX: C83.35 Diffuse large B-cell lymphoma, lymph nodes of inguinal region and lower limb (principal); Q60.3 Renal hypoplasia, unilateral; B37.0 Candidal stomatitis; E87.2 Acidosis; E44.0 Moderate protein-calorie malnutrition; E22.2 Syndrome of inappropriate secretion of antidiuretic hormone; E83.52 Hypercalcemia; I25.10 Atherosclerotic heart disease of native coronary artery without angina pectoris; E03.9 Hypothyroidism, unspecified; E78.5 Hyperlipidemia, unspecified; F32.9 Major depressive disorder, single episode, unspecified; Z90.49 Acquired absence of other specified parts of digestive tract; Z83.3 Family history of diabetes mellitus; Z82.49 Family history of ischemic heart disease and other diseases of the circulatory system; Z81.8 Family history of other mental and behavioral disorders; F17.210 Nicotine dependence, cigarettes, uncomplicated; D47.3 Essential (hemorrhagic) thrombocythemia; R13.10 Dysphagia, unspecified; D50.9 Iron deficiency anemia, unspecified; E53.8 Deficiency of other specified B group vitamins; I12.9 Hypertensive chronic kidney disease with stage 1 through stage 4 chronic kidney disease, or unspecified chronic kidney disease; N18.3 Chronic kidney disease, stage 3 (moderate); Z68.20 Body mass index [BMI] 20.0-20.9, adult
CPT/HCPCS: 36415; 70450; 70491; 71275; 74177; 76942; 80048; 80053; 80076; 81003; 82330; 82553; 82607; 83540; 83550; 83615; 83935; 84300; 84439; 84443; 84484; 84550; 85025; 85027; 85610; 85730; 87806; 88305; 93005; 93306; 96361; 96374; 96375; 99285; J1630; J2270; J2405; J2930; J3420; J3489; Q9967

== ENCOUNTER 2016-06-29 20:07 | Inpatient (IN) | payer MEDICARE ==
--- NOTE | ~2016-06-29 | FU ---
[facility] Nutrition Therapy DATE: 07/05/16 Patient: SOFIE COLEMAN Physician: MORCAR Address: [facility] Room/Bed: [address] [place] [address], Zip: [place] [address] Admit Date: 06/29/16 Date of : 58 Height: 5 10 Weight: 148 67.5 NUTRITION MONITORING/FOLLOW-UP: Reason: Nutrition follow-up Anthropometrics: Ht: 5'10" Adm wt: 66 kg BMI: 20.9 Current wt: 67.3 Labs: BUN 26, Ca++ 7.3 Meds: Synthroid, D5%, Lipitor, Furosemide, Ferrous Gluconate, Sodium Bicarbonate I&O's: 1070/675, last BM 06/29 Skin: Scar (legs/chest/back), no edema noted Assessment: Chart reviewed, events noted. Per chart, plans are in place for d/c home. Pt is currently on a regular diet with Ensure BID. RD internet security specialist visited with pt today. RD internet security specialist provided written and verbal cancer diet education RE: soft, mosit, high-protein foods and nutrition therapy on sore throat. Pt verbalized understanding. Pt reported fair appetite and still minimal PO intake. Pt reported liking and drinking the Ensure shakes. Pt reported having Ensure at home. RD internet security specialist encouraged continuation of supplements at home. RD discussed importance of adequate protein/calorie/fluid intake d/t cancer diagnosis and chemotherapy. Pt reported no diet questions at this time. Dx: Unintentional weight loss RT poor intake, decreased appetite, cancer AEB patient report, diagnosis of moderate PCM, 8# weight loss in 13 days (5.5% loss, severe) -ACTIVE Intervention: 1. Diet education 2. Ensure BID 3. Regular diet Monitoring, Evaluation and Goals: NOT MET 1. PO intake; consume >75% of meals and supplements 2. Weight; promote gradual weight loss, prevent unintentional weight loss Recommendations: 1. Continue Ensure shakes BID. 2. Appreciate family and staff to encourage adequate calorie/protein intake. Status: Pt is at a moderate nutritional risk. [facility] Nutrition Therapy DATE: 07/05/16 Patient: SOFIE COLEMAN Physician: MORCAR Address: [place] [facility] Room/Bed: [address] [place] [address], Zip: [place] [phone] Admit Date: 06/29/16 Date of : 58 Height: 5 10 Weight: [address] will f/u per protocol. Respectfully, Belgica Fernández, Director Of Solutions Architecture Diya Monsivais MS, RD, LD Food and Nutritional Services [facility] cc: client file
--- NOTE | ~2016-06-29 | EKG ---
PATIENT: SOFIE COLEMAN UNIT #: [id number] Ventricular Rate: 98 BPM Atrial Rate: 98 BPM P-R Interval: 138 ms QRS Duration: 96 ms Q-T Interval: 414 ms QTC Calculation(Bezet): 528 ms P Stanton: 67 degrees Calculated R Stanton: 41 degrees Calculated T Stanton: -131 degrees Diagnosis Line: Normal sinus rhythm Diagnosis Line: Possible Left atrial enlargement Diagnosis Line: Inferior infarct (cited on or before 25-JUN-2016) Diagnosis Line: Anterolateral infarct (cited on or before Diagnosis Line: 25-JUN-2016) Diagnosis Line: Prolonged QT Diagnosis Line: Abnormal ECG Diagnosis Line: When compared with ECG of 30-JUN-2016 06:00, Diagnosis Line: Serial changes of Anterior infarct Present Diagnosis Line: Confirmed by CARINA BROUSSARD MD ([id number]) on 07/02/2016 Diagnosis Line: 10:58:39 PM INTERPRETING MD: BOBO ELLISON
--- NOTE | ~2016-06-29 | CO ---
Unit #: [id number] #: [id number] Patient: SOFIE RAND [id number] [address] [address] [id number] I MR#: [id number] NAME: SOFIE RAND ROOM: 569 Age: 56 Sex: M Admission Date: 06/29/2016 : 1960 Attending Physician: Monique Rascon M.D. Primary Care Physician: Phoebe Morales M.D. Consultation Date: 07/01/2016 CONSULTATION REPORT ATTENDING PHYSICIAN Dr. Manas Harrison. PRIMARY CARE PHYSICIAN Phoebe Morales M.D. REASON FOR CONSULTATION Dysphagia. HISTORY OF PRESENT ILLNESS Mr. Rand is a very pleasant 56-year-old white gentleman, who has presented with bulky generalized lymphadenopathy due to stage IV non-Hodgkin lymphoma. The nodes are present in the neck and supraclavicular, mediastinal, as well as in the paraaortic abdominal areas. He has presented with increasing shortness of breath and weight loss along with some difficulty in swallowing and hoarseness of voice. The patient has a biopsy proven non-Hodgkin lymphoma and he is about to be started on radiation and chemotherapy. The patient before being started on chemotherapy, seemingly has developed non-ST elevation acute CO. I have been asked to evaluate him for dysphagia. He also has right-sided pleural effusion. The dysphagia is mostly to solids and of recent origin. The patient has lost a substantial weight over the past couple of months. PAST MEDICAL HISTORY Significant for history of hypertension, hyperlipidemia, hypothyroidism, hyponatremia, history of depression, stage IV non-Hodgkin lymphoma, and history of coronary artery disease with multiple coronary stents placed as well as coronary artery bypass graft. PAST SURGICAL HISTORY Included herniorrhaphy, back surgery, cholecystectomy, appendectomy, and coronary artery bypass surgery. SOCIAL HISTORY The patient with his daughter and granddaughter. He smokes less than a half of pack cigarette daily. Drinks alcohol occasionally. FAMILY HISTORY Significant for hypertension, coronary artery disease, and diabetes. HOME MEDICATIONS Include prednisone, Zestril, metoprolol, Zoloft, ferrous sulfate, sodium bicarb, Zovirax, atorvastatin, Plavix, hydrocodone, and Synthroid. Unit #: [id number] #: [id number] Patient: SOFIE RAND ALLERGIES He has no known drug allergies. REVIEW OF SYSTEMS Detailed review of organ system reveals significant weight loss. No history of fever, chills, or rigors. No history of headache, seizures, chest pain, or syncope. There is history of shortness of breath as well as history of increasing dysarthria, history of hoarseness of voice as well as anorexia. No history of cough or expectoration. There is history of shortness of breath. PHYSICAL EXAMINATION GENERAL: On examination, he is alert and oriented, and appears comfortable. VITAL SIGNS: Stable with a temperature of 97, pulse is 94 per minute and regular, respiratory rate is 20, and blood pressure 91/54. He weighs 150 pounds and his baseline weight is about the same. HEENT: He has mild pallor. There being no icterus, lymphadenopathy, or peripheral edema. CARDIOVASCULAR: Reveals normal heart sounds. No murmurs on auscultation. LUNGS: Reveal normal breath sounds. Good air entry. The patient does have bulky lymphadenopathy in supraclavicular area as well as inguinal areas. ABDOMEN: Soft and nontender. Liver and spleen are not palpable. Bowel sounds normal. DIAGNOSTIC STUDIES LABORATORY RESULTS: Shows a white count of 27,000, hemoglobin of 9.9, hypochromic microcytic indices, platelet count of 576, INR is 1.1. Serum chemistry shows a BUN and creatinine of 24 and 1.0. Sodium 128, potassium 4.5, albumin is 2.8. LFTs are normal. LDH is 575. The patient does have low iron, transferrin saturation, and TIBC indicating anemia of multiple etiologies most likely chronic disease. CLINICAL IMPRESSION The patient does require an upper endoscopy and a history of dysphagia. This could be most likely extrinsic compression from the bulky lymphadenopathy. This was discussed at length with the patient and his family. His current problem seems to be cough, for which he is getting sedative and antitussives. The plan will be to wait for the patient's cardiac clearance from standpoint view of new onset of non-ST elevation myocardial infarction before proceeding with endoscopy. The patient is most likely due to have heart catheterization tomorrow. We will await until he recovers from cardiac situation in order to proceed with endoscopy. Dictated by.Eliana. Ramone Vanegas/lisa TD: 07/03/2016 04:05 JOB #: [id number] CC: Ramone Dan M.D. Mark R. Jones, M.D. Unit #: [id number] #: [id number] Patient: SOFIE RAND CONSULTATION REPORT Page 1 of 1 X Eloy Cruz MD CONSULTATION REPORT
--- NOTE | ~2016-06-29 | CR72 ---
[facility] A Service of [facility] & [facility] RADIOLOGY TEXT RESULTS PATIENT: SOFIE COLEMAN LOCATION: [facility] 569-01 : [birth year] UNIT #: [id number] AGE: [address]: Chelsey Kwong MD SEX: M ORDER DR: [id number] [facility] [address] [place], [place] [address] [id number] I MR#: [id number] Acc #: [id number] NAME: SOFIE COLEMAN : 1960 SEX: M STUDY DATE/TIME: 06/29/2016 20:28 UNIT: [facility] ROOM: [facility] STUDY DESCRIPTION: CR Chest Single View Portable Attending Physician: Manas Harrison M.D. Ordering Physician: Bran Breen M.D. Primary Care Physician: Phoebe Morales M.D. MEDICAL IMAGING REPORT This report is preliminary unless electronic signature is present EXAM Single view chest HISTORY Shortness of air and weakness today. FINDINGS Bulky upper mediastinal adenopathy corresponds to findings on CT chest 06/25/2016, causing mild tracheal deviation to the left. Mild interstitial prominence in the lower lungs bilaterally, greater on the right, could be due to atelectasis or edema. Very small right pleural effusion. Emphysema in the bilateral upper lobes, greater on the right. IMPRESSION 1. Mild interstitial prominence in the lower lungs, greater on the right could be due to interstitial edema or atelectasis. 2. Small right pleural effusion. 3. Bulky adenopathy in the upper mediastinum corresponds to similar finding on recent CT. Dictated by... Luis M Machado M.D. THIS IS AN ELECTRONICALLY VERIFIED REPORT Luis M Machado M.D. at 06/30/2016 11:19 PM DFL/rnr TD: 06/30/2016 04:39 JOB #: [id number] MEDICAL IMAGING REPORT Page 1 of 1 COPY
--- NOTE | ~2016-06-29 | DS ---
Unit #: [id number] #: [id number] Patient: SOFIE COLEMAN [id number] [address] [place], [place] [address] [id number] I MR#: [id number] NAME: SOFIE COLEMAN ROOM: 569 Age: 56 Sex: M Admission Date: 06/29/2016 : 1960 Discharge Date: 07/05/2016 Attending Physician: Monique Rascon M.D. Primary Care Physician: Phoebe Morales M.D. 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 The patient is a very pleasant 56-year-old male who presented to the emergency department with difficulty swallowing, increased weakness. Through emergency department, patient was found to have significant lymphadenopathy in anterior cervical chain. CT scan neck and chest, abdomen reveals significant diffuse bulky lymphadenopathy. In conjunction with the findings, the patient was found to have significant leukocytosis. Consultation was placed to Dr. Del Rio. The patient ultimately underwent fine needle aspiration. Diagnosis through pathology was made of non-Hodgkin lymphoma. At time of discharge, Dr. Del Rio is to follow patient at time of discharge on 07/09/2016. He was also noted to have [id number] deficiency. Both will be supplemented as an outpatient. He was noted to have hyponatremia on day of admission. It was appropriately treated and was improved. He does have a prior history of coronary artery disease, fairly significant, and Dr. Del Rio wanted to initiate chemotherapy. However, he was not sure of his cardiac status. Therefore, consultation was placed to Dr. Silva of cardiology services. Ultimately, through her hospital course, the patient underwent cardiac catheterization which did reveal overall ejection fraction of 45%. There was 100% at the origin of the LAD with a patent VALERA which was noted. There was no new stent placement which was made. Medical management was recommended. The patient's complaints of dysphagia worsened. He also had a progressive cough and, therefore, we placed consultation to Dr. Cruz of gastroenterology services. The patient underwent video swallow function evaluation which did reveal appropriate modifications but no acute stricture. Dr. Cruz then performed upper GI endoscopy yesterday on 07/04/2016 which did reveal extrinsic compression of the mid esophagus which was noted. There was an active bleeding anterior duodenal ulcer with visible vessel which was also noted. Epinephrine was injected and hemostasis was achieved. The patient was kept overnight. His hemoglobin was watched. The patient states adamantly that he wishes to go home. He feels much better and he Unit #: [id number] #: [id number] Patient: SOFIE COLEMAN states that he will follow up at time of discharge as an outpatient. Ultimately, he may require PEG tube placement secondary to chronic dysphagia as well as aforementioned stricture but this will be decided as an outpatient. At time of discharge, the patient's hemoglobin is 8.8, white count stands at 16.4. BMP shows a creatinine of 1.1. FINAL DISCHARGE DIAGNOSES 1. Newly diagnosed diffuse, large B-cell lymphoma with bulky disease stage 4. 2. Hyponatremia on admission, now resolved. 3. Chronic kidney disease stage 3 with baseline creatinine of 1.1. 4. Anemia: Baseline hemoglobin approximately 8.5 to 9.5. 5. Vitamin B12 deficiency. 6. Moderate protein malnutrition. 7. Depression. 8. Dysphagia, likely secondary to stricture. 9. Duodenal ulcer bleeding, status post epinephrine and PPI therapy. 10. Hyperlipidemia. 11. Hypertension. 12. Hypothyroidism. 13. Severe coronary artery disease with history of coronary artery bypass graft as well as cardiac catheterization this hospital admission. 14. Systolic heart failure with ejection fraction 45%. 15. Tobacco abuse. 16. Non-anion gap metabolic acidosis seen on admission. FINAL DISCHARGE MEDICATIONS 1. Prednisone 60 mg p.o. daily. 2. Sodium bicarbonate 650 mg p.o. b.i.d. 3. Zoloft 200 mg p.o. daily. 4. Trazodone 50 mg p.o. q. h.s. 5. Lipitor 40 mg p.o. q. h.s. 6. Zovirax 400 mg p.o. b.i.d. 7. Ativan 1 mg p.o. q.6 p.r.n. 8. Coreg 12.5 mg p.o. b.i.d. 9. Lasix 20 mg p.o. b.i.d. 10. Lisinopril 2.5 mg p.o. daily. 11. Ferrous gluconate 324 mg p.o. b.i.d. 12. Aspirin 81 mg p.o. daily, to be resumed on 07/12/2016. 13. Lane 5/325, one tablet p.o. q.6 p.r.n. 14. Plavix 75 mg p.o. daily, to start on 07/12/2016. 15. Synthroid 150 mcg p.o. daily. 16. Sublingual nitro as directed. 17. Protonix 40 mg p.o. b.i.d. 18. Augmentin 875 mg p.o. b.i.d. x5 days. DISCHARGE CONDITION Stable. DISCHARGE DISPOSITION Home. Dictated by... Unit #: [id number] #: [id number] Patient: SOFIE COLEMAN KELLY Rascon M.D. ISN/martir TD: 07/06/2016 09:08 JOB #: [id number] DISCHARGE SUMMARY Page 1 of 1 X Monique Rascon MD X DISCHARGE SUMMARY
--- NOTE | ~2016-06-29 | EKG ---
PATIENT: SOFIE COLEMAN UNIT #: [id number] Ventricular Rate: 96 BPM Atrial Rate: 96 BPM P-R Interval: 142 ms QRS Duration: 92 ms Q-T Interval: 364 ms QTC Calculation(Bezet): 459 ms P [place]: 70 degrees Calculated R [place]: 43 degrees Calculated T [place]: 121 degrees Diagnosis Line: Normal sinus rhythm Diagnosis Line: Possible Inferior infarct (cited on or before Diagnosis Line: 25-JUN-2016) Diagnosis Line: Anterolateral infarct (cited on or before Diagnosis Line: 25-JUN-2016) Diagnosis Line: Abnormal ECG Diagnosis Line: When compared with ECG of 25-JUN-2016 16:31, Diagnosis Line: Serial changes of evolving Anterior infarct Diagnosis Line: Present Diagnosis Line: Serial changes of evolving Anterolateral infarct Diagnosis Line: Present Diagnosis Line: Confirmed by CARINA BROUSSARD MD ([id number]) on 07/01/2016 Diagnosis Line: 4:04:13 PM INTERPRETING MD: BOBO ELLISON
--- NOTE | ~2016-06-29 | HP ---
Unit #: [id number] #: [id number] Patient: SOFIE COLEMAN [id number] [facility] [address] [place], [place] [address] [id number] I MR#: [id number] NAME: SOFIE COLEMAN ROOM: 569 Age: 56 Sex: M Admission Date: 06/29/2016 : 1960 Attending Physician: Chelsey Kwong M.D. Primary Care Physician: Phoebe Morales M.D. HISTORY AND PHYSICAL CHIEF COMPLAINT Shortness of breath. HISTORY OF PRESENT ILLNESS This is a 56-year-old gentleman with a past medical history of hypothyroidism, hypertension, dyslipidemia, depression, coronary artery disease status post multiple PCI, stent and coronary artery bypass grafting in 2008. He was admitted here to [facility] on 06/25/2016 with a chief complaint of having cervical and inguinal lymphadenopathy, weight loss, difficulty swallowing. The patient had workup done, including ultrasound-guided biopsy of the left groin lymph node. Pathology came back non-Hodgkin lymphoma. He was discharged home today. I do not have the discharge summary, but in talking with the patient he was discharge home and was diagnosed with non-Hodgkin lymphoma. He is supposed to follow up with Dr. Del Rio on Saturday to get a PET scan and start chemotherapy, but his shortness of breath got worse today at home and then EMS was called. He was brought to the emergency room. On arrival in the emergency room the patient was found to have mildly increased troponin of 0.59 and second set 0.14 and eventually he has been admitted. Chest x-ray shows right pleural effusion. PAST MEDICAL HISTORY 1. History of coronary artery disease status post multiple PCI, stents and with two-vessel coronary artery bypass grafting in 2008. 2. Stage 4 non-Hodgkin lymphoma. 3. Hyponatremia. 4. Leukocytosis. 5. Hypothyroid. 6. Hyperlipidemia. 7. Hypertension. 8. History of depression. PAST SURGICAL HISTORY 1. History of cardiac catheterization and coronary artery bypass grafting in 2008 with multiple stents in the past. 2. History of cholecystectomy. 3. Back surgery times two. 4. Hernia repair. 5. Appendectomy. SOCIAL HISTORY The patient lives with his daughter and granddaughter. He smokes less than a half pack daily. He drinks alcohol very seldom. Denies other illicit drug use. Unit #: [id number] #: [id number] Patient: SOFIE COLEMAN FAMILY HISTORY History of hypertension, depression, coronary artery disease, diabetes in the family. ALLERGIES No known drug allergies. HOME MEDICATIONS 1. Prednisone 20 mg daily. 2. Zestril 2.5 mg daily. 3. Metoprolol succinate 25 mg daily. 4. Zoloft 200 mg daily. 5. Ferrous sulfate 324 mg daily. 6. Sodium bicarbonate 650 mg b.i.d. 7. Zovirax 400 mg b.i.d. 8. Atorvastatin 40 mg daily. 9. Plavix 75 mg daily. 10. Hydrocodone 5/325 mg 1 tablet q.i.d. 11. Synthroid 137 mcg p.o. daily. REVIEW OF SYSTEMS The patient has shortness of breath, difficulty breathing, difficulty swallowing, weight loss, nausea, anorexia, night sweats, adenopathy. Other than that all other review of systems negative. PHYSICAL EXAMINATION GENERAL: Middle-aged man lying in the bed comfortably. Currently not in any distress. Alert and awake times three. VITALS: Temperature 97.6, heart rate 103, respiratory rate 18, blood pressure 109/83 HEENT: Pupils equal and reactive to light and accommodation. Extraocular muscles intact. Pharynx benign. NECK: Supple. There is a large cervical lymphadenopathy positive, extending to the right supraclavicular region. LUNGS: Poor air entry with few basal crackles. HEART: S1 and S2. Regular rate and rhythm. ABDOMEN: Soft, nontender and nondistended. Bowel sounds positive. EXTREMITIES: Large left inguinal adenopathy. Decreased pedal pulses. NEUROLOGIC: Alert and oriented times four. (1) throughout. Power 5/5. Cranial nerves II through XII intact. DIAGNOSTIC STUDIES IMAGING: Chest x-ray shows right pleural effusion. LABORATORY: Troponin 0.14, white blood cell count 23, hemoglobin 9, hematocrit 31, platelets 576. Sodium 128, potassium 4.5, glucose 96, BUN 24, creatinine 1. BNP 506. Troponin 0.59. INR 1. ASSESSMENT/PLAN 1. Questionable non-ST elevation myocardial infarction with borderline troponin with a history of coronary artery disease, status post multiple stents and CABG. Will admit the patient. Repeat cardiac enzymes. Start on Lovenox. Start on aspirin and Plavix. Cardiology to evaluate. 2. Small right pleural effusion. 3. Increased BNP with shortness of breath. I will go ahead and get a two-dimensional echocardiogram. Unit #: [id number] #: [id number] Patient: SOFIE COLEMAN 4. Hyponatremia, on sodium bicarbonate. 5. Leukocytosis. Most likely secondary to steroids. 6. Stage 4 non-Hodgkin lymphoma. 7. Hypothyroid. 8. Hypertension. 9. Dyslipidemia. 10. Depression. 11. DVT prophylaxis on Lovenox. Dictated by Denisse Garza M.D. Ambrose TD: 06/30/2016 07:04 JOB #: [id number] HISTORY AND PHYSICAL Page 1 of 1 X X HISTORY AND PHYSICAL
--- NOTE | ~2016-06-29 | EKG ---
PATIENT: SOFIE COLEMAN UNIT #: [id number] Ventricular Rate: 86 BPM Atrial Rate: 86 BPM P-R Interval: 136 ms QRS Duration: 90 ms Q-T Interval: 402 ms QTC Calculation(Bezet): 481 ms P [place]: 55 degrees Calculated R [place]: 28 degrees Calculated T [place]: 132 degrees Diagnosis Line: Normal sinus rhythm Diagnosis Line: Cannot rule out Inferior infarct (cited on or Diagnosis Line: before 25-JUN-2016) Diagnosis Line: Anterolateral infarct (cited on or before Diagnosis Line: 25-JUN-2016)with st abnormality suggests Anterior Diagnosis Line: wall aneurysm Diagnosis Line: Abnormal ECG Diagnosis Line: When compared with ECG of 29-JUN-2016 20:13, Diagnosis Line: (unconfirmed) Diagnosis Line: No significant change was found Diagnosis Line: Confirmed by CARINA BROUSSARD MD ([id number]) on 07/01/2016 Diagnosis Line: 4:31:18 PM INTERPRETING MD: BOBO ELLISON
--- NOTE | ~2016-06-29 | OR ---
Unit #: [id number] #: [id number] Patient: SOFIE COLEMAN [id number] [address] [place], [place] [address] [id number] I MR#: [id number] NAME: SOFIE COLEMAN ROOM: 569 Date of Procedure: 07/04/2016 Admission Date: 06/29/2016 Surgeon: Eloy Cruz M.D. : 1960 Attending Physician: Monique Rascon M.D. Primary Care Physician: Phoebe Morales M.D. OPERATIVE REPORT PRIMARY CARE PHYSICIAN Phoebe Morales M.D. PREOPERATIVE DIAGNOSES Dysphagia. The patient has been diagnosed with stage IV non-Hodgkin lymphoma. PROCEDURES PERFORMED 1. Upper gastrointestinal endoscopy and biopsy. 2. Upper gastrointestinal endoscopy and hemorrhage control. POSTOPERATIVE DIAGNOSES 1. The patient had extrinsic compression of the esophagus at 24 to 27 cm from the incisors. The lumen was nearly totally occluded as a result of extrinsic decompression. As a consequence, solids will be very hard to swallow and the patient should survive on Ensure, Boost, and milkshakes in the meantime. If he is about to get chemo radiation therapy, then a prophylactic placement of a gastrostomy tube should be entertained. 2. The patient had actively bleeding duodenal ulcer in the anterior aspect of the duodenal bulb with a visible vessel and clot. This was treated after injection of 1:10,000 epinephrine followed by heater probe application and placement of a hemoclip. Excellent hemostasis was achieved. 3. Rest of examination up to third part of duodenum was normal. Biopsy obtained from the antrum for CLOtest. RECOMMENDATIONS 1. The patient being started on Protonix infusion. He should be kept in the hospital for at least 24 hours to ensure stability of hemoglobin. 2. Consider prophylactic PEG before starting chemoradiation therapy especially the patient has worsening symptoms of dysphagia after initial therapy. These issues were discussed at length with the patient's mother. SEDATION USED MAC. DESCRIPTION OF PROCEDURE Following detailed explanation of potential risks and complications of an upper endoscopy, namely perforation, bleeding, complications related to sedation, the patient was brought to GI lab and laid in the left lateral decubitus position. Lubricated tip of the Olympus video upper endoscope was passed through bite block into the proximal esophagus under direct Unit #: [id number] #: [id number] Patient: SOFIE COLEMAN. The entire esophageal mucosa was examined. The patient was noted to have an extrinsic compression of the esophagus from 24 to 27 cm from the incisors with near occlusion off the lumen in this area. The distal esophagus itself appeared normal. The scope was then advanced into the gastric cavity and the latter was insufflated. Mucosa of the fundus, body, and antrum examined and appeared unremarkable. Pylorus was intubated with visualization of the duodenal bulb. The latter was noted to have an anterior duodenal ulcer with a visible vessel and clot in the middle with actively bleeding ulcer base. The second and third part of duodenum were normal. Attention then focused on the visible vessel and ulcer. After removing the clot, the area was injected 1:10,000 epinephrine and then treated with a heater probe co-apt coagulation. Excellent hemostasis was achieved. This was further ensured by application and hemoclip. The area was washed carefully for a couple of minutes before withdrawing the scope in the antrum. A biopsy was obtained from the antrum for CLOtest. The scope was then withdrawn in the distal esophagus. Entire esophageal mucosa was examined all the way up to pharynx. No additional findings noted. The patient tolerated the procedure without any postprocedure complications. Dictated by... Ramone Vanegas/lisa TD: 07/04/2016 23:04 JOB #: [id number] Ramone Dan M.D. OPERATIVE REPORT Page 1 of 1 X Eloy Cruz MD X PROCEDURE OPERATIVE NOTE
--- NOTE | ~2016-06-29 | CO ---
Unit #: [id number] #: [id number] Patient: SOFIE RAND [id number] [address] [place], [place] [address] [id number] I MR#: [id number] NAME: SOFIE RAND ROOM: 569 Age: 56 Sex: M Admission Date: 06/29/2016 : 1960 Attending Physician: Monique Rascon M.D. Primary Care Physician: Phoebe Morales M.D. CONSULTATION REPORT REASON FOR CONSULT Shortness of breath and elevated troponins. HISTORY Mr. Rand is a 56-year-old white male, who was discharged from the hospital yesterday morning after being evaluated and diagnosed as having stage IV nonHodgkin's lymphoma. He had presented initially about a week ago with weight loss, anorexia, hoarseness of the voice, shortness of breath, and marked fatigue, weakness, etc as detailed in the HPI dictated by Dr. Chula Colvin. According to the patient, he went home yesterday and in the evening had walked up to the bathroom when he became extremely weak, profusely diaphoretic, extremely short of breath to an extent that he staggered back to the bed to obtain relief. ladler were called who brought him to the emergency room. En route to the hospital, he was found to have reduced oxygen saturations though the levels are not known to the patient. He had never experienced similar dyspnea or diaphoresis in the past. The patient was diagnosed to have elevated serum troponin levels suggestive of an acute IN and we were asked to see him. The patient vehemently denies any chest discomfort to suggest angina pectoris. Denies any pleuritic pain. Has not had any orthopnea or nocturnal dyspnea over the last few days. He denies any fever, chills, hemoptysis, hematemesis, dysuria, or pyuria. He has not noticed any change in the color of urine. From a cardiac standpoint, the patient suffered from angina pectoris and acute IN in the distant past and underwent multiple PCIs with stent insertions performed by Dr. Davian Girard, the details of which are not known. In 2008, he underwent two-vessel coronary artery bypass graft surgery performed by Dr. Dmitriy Harkins, again the details not known. The patient has never been told to have weakness of the heart muscle and has never been advised to follow any salt and fluid restriction. PAST MEDICAL HISTORY 1. Coronary artery disease, old anterior and old inferior wall myocardial infarction. 2. Two-vessel coronary artery bypass graft surgery in 2008. 3. Hypothyroidism. 4. Hyperlipidemia. 5. Hypertension. 6. COPD. 7. Recently diagnosed nonHodgkin's lymphoma. SOCIAL AND PERSONAL HISTORY Unit #: [id number] #: [id number] Patient: SOFIE RAND Until about three months ago, he had continued to smoke about a pack of cigarettes a day with a total smoking history of greater than 60 pack years. FAMILY HISTORY Positive for coronary artery disease. PHYSICAL EXAMINATION GENERAL: Reveals a middle-aged male in no acute cardiorespiratory distress, talks in whispers. There is no jugular venous distention. No ankle edema is noted. Carotid upstrokes are diminished without any bruits. Pedal pulses are absent. CARDIAC: Shows apical impulse is palpable in fifth intercostal space and midclavicular line and is normal. Both heart sounds are normal. A S4 gallop is heard. CHEST: Shows normal to palpation and percussion. There are diminished breath sounds in both lung may. Fine rhonchi and rales are noted in both bases. ABDOMEN: Shows no hepatosplenomegaly, free fluid, or masses. RECTAL: Deferred. CENTRAL NERVOUS SYSTEM: Within normal limits. DIAGNOSTIC STUDIES LABORATORY: Serum sodium is 130, BUN 25, creatinine 0.9, CO2 is 18. LDH 575. Troponin 1.46. BNP 506. TSH four days ago was 23.89. Hemoglobin 10.3, hematocrit 32.9, and 29,200 white cells are seen with a normal differential. IMAGING: Chest x-ray is reported as showing mild interstitial prominence in the lower lungs, greater on the right, could be secondary to interstitial edema. There is a small right pleural effusion and bulky adenopathy in the upper mediastinum corresponding to similar findings on the recent CT. 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 DIAGNOSES 1. Shortness of breath, secondary to systolic heart failure and pulmonary venous congestion. 2. Old extensive anterior and lateral wall myocardial infarction. 3. Old inferior wall myocardial infarction. 4. Status post two-vessel coronary artery bypass surgery in 2008, details not known. 5. Possible acute non ST elevation myocardial infarction. 6. Stage IV nonHodgkin's lymphoma. 7. Hypothyroidism. 8. History of hypertension. 9. 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 PLAN Patient will be started on intravenous Lasix. Lovenox is being started for antiplatelet effect in view of elevated serum troponin levels until a diagnosis is established. Small dose lisinopril for afterload reduction Unit #: [id number] #: [id number] Patient: SOFIE RAND in a patient with coronary artery disease is being started. An echocardiogram and Doppler study will be done. Fluid restriction will be instituted. Repeat EKG and cardiac enzymes will be checked to establish a diagnosis of an acute IN and the patient may need repeat evaluation of coronary tree and bypass grafts. Thank you very much for associating us in the care of the patient. Dictated by... Ramone Easley/ranjana TD: 07/01/2016 10:40 JOB #: [id number] CC: Ramone Roa M.D. Subhash P. Sheth, M.D. CONSULTATION REPORT Page 1 of 1 X Jere Silva MD X CONSULTATION REPORT
[~2016-06-29 20:07] MED LIST changes: +DELTASONE20 MG PO; +FERROUS GLUCON324 M1 PO; +SODIUM BICARBO650 MG PO
[2016-06-29 20:40] LABS: BASOPHIL% 0.1 % (0-2.5); HEMATOCRIT 31.5 % (38.0-50.0); HEMOGLOBIN 9.9 gm/dL (13.0-16.0); LYMPHOCYTE# 0.3 X10e3 (1.0-3.5); LYMPHOCYTE% 1.3 % (17.0-45.0); MEAN CELL VOLUME 74.1 FL (83-96); MEAN CORPUSCULAR HEMOGLOBIN 23.2 PG (28-34); MEAN CORPUSCULAR HGB CONC 31.3 g/dL (30-36); MEAN PLATELET VOLUME 6.5 FL (6.5-11.5); MONOCYTE# 0.9 X10e3 (0-1.0); MONOCYTE% 3.3 % (3.0-12.0); NEUTROPHIL# 26.1 X10e3 (1.5-7.1); NEUTROPHIL% 95.3 % (40-75); PLATELET COUNT 576 X10e3 (140-420); RED BLOOD COUNT 4.26 X10e (3.90-5.60); RED CELL DISTRIBUTION WIDTH 18.2 % (11.0-15.5)
[2016-06-29 20:43] LABS: WHITE BLOOD COUNT 27.3 X10e3 (4.0-10.5)
[2016-06-29 20:47] LABS: DIFF IND YES
[2016-06-29 20:50] LABS: INR 1.1; PARTIAL THROMBOPLASTIN TIME 28.1 SECONDS (23.5-31.3)
[2016-06-29 20:59] LABS: POC - CKMB 7.5 ng/mL (0.0-7.9); POC - TROPONIN 0.59 ng/mL (<=0.05)
[2016-06-29 21:05] LABS: ALBUMIN SERUM 2.8 g/dL (3.5-5.0); ALKALINE PHOSPHATASE 81 U/L (32-92); ALT (SGPT) 20 U/L (10-40); AST (SGOT) 25 U/L (10-42); BILIRUBIN,TOTAL 0.2 mg/dL (0.2-2.0); BLOOD UREA NITROGEN 24 mg/dL (9-23); CALCIUM SERUM 8.7 mg/dL (8.4-10.2); CARBON DIOXIDE 16 mmol/L (22-31); CHLORIDE 101 mmol/L (100-111); GLOM FILT RATE Estimated 83.2 mL/min (>60); GLUCOSE FASTING 96 mg/dL (70-110); POTASSIUM 4.5 mmol/L (3.5-5.1); PROTEIN TOTAL SERUM 6.4 g/dL (6.0-8.3); SODIUM 128 mmol/L (135-145)
[2016-06-29 21:06] LABS: BILIRUBIN, DIRECT <0.1 mg/dL (0.0-0.2); BILIRUBIN,INDIRECT 0.1 mg/dL (0.0-0.9)
[2016-06-29 21:19] LABS: HYPERSEGMENTED POLYS PRESENT
[2016-06-29 21:20] LABS: PLATELET ESTIMATE INCREASED (NORMAL)
[2016-06-29 21:21] LABS: HYPOCHROMIA SL; MICROCYTOSIS SL
[2016-06-29 21:22] LABS: ANISOCYTOSIS MOD; OVALOCYTES PRESENT; POIKILOCYTOSIS SL
[2016-06-29 22:13] LABS: POC - CKMB 1.7 ng/mL (0.0-7.9); POC - TROPONIN 0.14 ng/mL (<=0.05)
[2016-06-30 04:04] LABS: BASOPHIL% 0.2 % (0-2.5); EOSINOPHIL# 0.1 X10e3 (0-0.7); EOSINOPHIL% 0.3 % (0.0-7.0); HEMATOCRIT 32.9 % (38.0-50.0); HEMOGLOBIN 10.3 gm/dL (13.0-16.0); LYMPHOCYTE# 0.5 X10e3 (1.0-3.5); LYMPHOCYTE% 1.7 % (17.0-45.0); MEAN CELL VOLUME 74.5 FL (83-96); MEAN CORPUSCULAR HEMOGLOBIN 23.3 PG (28-34); MEAN CORPUSCULAR HGB CONC 31.3 g/dL (30-36); MEAN PLATELET VOLUME 6.6 FL (6.5-11.5); MONOCYTE# 0.9 X10e3 (0-1.0); NEUTROPHIL# 27.7 X10e3 (1.5-7.1); NEUTROPHIL% 94.8 % (40-75); PLATELET COUNT 534 X10e3 (140-420); RED BLOOD COUNT 4.41 X10e (3.90-5.60); RED CELL DISTRIBUTION WIDTH 18.2 % (11.0-15.5); WHITE BLOOD COUNT 29.2 X10e3 (4.0-10.5)
[2016-06-30 04:05] LABS: DIFF IND NO
[2016-06-30 04:25] LABS: CK TOTAL 36 IU/L (36-174)
[2016-06-30 04:33] LABS: BUN/CREATININE RATIO 27.77; CALCIUM SERUM 8.6 mg/dL (8.4-10.2); CREATININE SERUM 0.9 mg/dL (0.6-1.4); GLOM FILT RATE Estimated 94.5 mL/min (>60); POTASSIUM 4.5 mmol/L (3.5-5.1)
[2016-06-30 13:04] LABS: CK TOTAL 33 IU/L (36-174)
[2016-07-01 05:46] LABS: BASOPHIL% 0.1 % (0-2.5); HEMATOCRIT 33.5 % (38.0-50.0); HEMOGLOBIN 10.7 gm/dL (13.0-16.0); LYMPHOCYTE# 0.6 X10e3 (1.0-3.5); MEAN CELL VOLUME 74.1 FL (83-96); MEAN CORPUSCULAR HEMOGLOBIN 23.6 PG (28-34); MEAN CORPUSCULAR HGB CONC 31.9 g/dL (30-36); MONOCYTE# 0.6 X10e3 (0-1.0); MONOCYTE% 2.8 % (3.0-12.0); NEUTROPHIL# 19.9 X10e3 (1.5-7.1); NEUTROPHIL% 94.1 % (40-75); PLATELET COUNT 488 X10e3 (140-420); RED BLOOD COUNT 4.53 X10e (3.90-5.60); RED CELL DISTRIBUTION WIDTH 18.8 % (11.0-15.5); WHITE BLOOD COUNT 21.2 X10e3 (4.0-10.5)
[2016-07-01 05:47] LABS: DIFF IND NO
[2016-07-01 06:54] LABS: BUN/CREATININE RATIO 35.55; CALCIUM SERUM 8.5 mg/dL (8.4-10.2); CREATININE SERUM 0.9 mg/dL (0.6-1.4); GLOM FILT RATE Estimated 94.5 mL/min (>60)
[2016-07-02 05:17] LABS: EOSINOPHIL% 0.1 % (0.0-7.0); HEMATOCRIT 32.1 % (38.0-50.0); HEMOGLOBIN 10.1 gm/dL (13.0-16.0); LYMPHOCYTE# 0.5 X10e3 (1.0-3.5); LYMPHOCYTE% 2.6 % (17.0-45.0); MEAN CELL VOLUME 74.1 FL (83-96); MEAN CORPUSCULAR HEMOGLOBIN 23.4 PG (28-34); MEAN CORPUSCULAR HGB CONC 31.6 g/dL (30-36); MEAN PLATELET VOLUME 6.9 FL (6.5-11.5); MONOCYTE# 0.5 X10e3 (0-1.0); MONOCYTE% 2.5 % (3.0-12.0); NEUTROPHIL# 19.1 X10e3 (1.5-7.1); NEUTROPHIL% 94.8 % (40-75); PLATELET COUNT 423 X10e3 (140-420); RED BLOOD COUNT 4.33 X10e (3.90-5.60); RED CELL DISTRIBUTION WIDTH 19.1 % (11.0-15.5); WHITE BLOOD COUNT 20.2 X10e3 (4.0-10.5)
[2016-07-02 05:18] LABS: DIFF IND NO
[2016-07-02 05:34] LABS: INR 1.1; PARTIAL THROMBOPLASTIN TIME 35.9 SECONDS (23.5-31.3); PROTHROMBIN TIME (PATIENT) 11.7 SECONDS (9.6-11.5)
[2016-07-02 07:13] LABS: BUN/CREATININE RATIO 30.83; CALCIUM SERUM 8.3 mg/dL (8.4-10.2); CREATININE SERUM 1.2 mg/dL (0.6-1.4); GLOM FILT RATE Estimated 66.7 mL/min (>60); MAGNESIUM 1.9 mg/dL (1.6-3.0); POTASSIUM 3.7 mmol/L (3.5-5.1)
[2016-07-03 06:21] LABS: HEMATOCRIT 30.7 % (38.0-50.0); HEMOGLOBIN 9.6 gm/dL (13.0-16.0); MEAN CELL VOLUME 75.3 FL (83-96); MEAN CORPUSCULAR HEMOGLOBIN 23.4 PG (28-34); MEAN CORPUSCULAR HGB CONC 31.1 g/dL (30-36); MEAN PLATELET VOLUME 7.4 FL (6.5-11.5); RED BLOOD COUNT 4.07 X10e (3.90-5.60); RED CELL DISTRIBUTION WIDTH 18.9 % (11.0-15.5); WHITE BLOOD COUNT 22.5 X10e3 (4.0-10.5)
[2016-07-03 07:10] LABS: BUN/CREATININE RATIO 29.09; CALCIUM SERUM 7.9 mg/dL (8.4-10.2); CREATININE SERUM 1.1 mg/dL (0.6-1.4); GLOM FILT RATE Estimated 74.1 mL/min (>60); POTASSIUM 3.8 mmol/L (3.5-5.1)
[2016-07-04 16:05] LABS: BASOPHIL# 0.2 X10e3 (0-0.3); BASOPHIL% 0.7 % (0-2.5); EOSINOPHIL% 0.2 % (0.0-7.0); HEMATOCRIT 29.5 % (38.0-50.0); HEMOGLOBIN 9.3 gm/dL (13.0-16.0); LYMPHOCYTE# 0.4 X10e3 (1.0-3.5); LYMPHOCYTE% 1.9 % (17.0-45.0); MEAN CELL VOLUME 75.1 FL (83-96); MEAN CORPUSCULAR HEMOGLOBIN 23.6 PG (28-34); MEAN CORPUSCULAR HGB CONC 31.4 g/dL (30-36); MEAN PLATELET VOLUME 7.2 FL (6.5-11.5); MONOCYTE# 0.9 X10e3 (0-1.0); MONOCYTE% 3.9 % (3.0-12.0); NEUTROPHIL# 20.7 X10e3 (1.5-7.1); NEUTROPHIL% 93.3 % (40-75); PLATELET COUNT 359 X10e3 (140-420); RED BLOOD COUNT 3.93 X10e (3.90-5.60); RED CELL DISTRIBUTION WIDTH 19.3 % (11.0-15.5); WHITE BLOOD COUNT 22.2 X10e3 (4.0-10.5)
[2016-07-04 16:08] LABS: DIFF IND YES
[2016-07-04 16:36] LABS: PLATELET ESTIMATE NORMAL (NORMAL)
[2016-07-04 16:39] LABS: ANISOCYTOSIS SL; HYPOCHROMIA SL; POIKILOCYTOSIS SL; RBC NORMAL YES
[2016-07-05 05:48] LABS: HEMATOCRIT 27.7 % (38.0-50.0); HEMOGLOBIN 8.8 gm/dL (13.0-16.0); MEAN CELL VOLUME 74.3 FL (83-96); MEAN CORPUSCULAR HEMOGLOBIN 23.6 PG (28-34); MEAN CORPUSCULAR HGB CONC 31.8 g/dL (30-36); MEAN PLATELET VOLUME 7.4 FL (6.5-11.5); RED BLOOD COUNT 3.73 X10e (3.90-5.60); RED CELL DISTRIBUTION WIDTH 19.5 % (11.0-15.5); WHITE BLOOD COUNT 16.4 X10e3 (4.0-10.5)
[2016-07-05 06:21] LABS: BUN/CREATININE RATIO 23.63; CALCIUM SERUM 7.3 mg/dL (8.4-10.2); CREATININE SERUM 1.1 mg/dL (0.6-1.4); GLOM FILT RATE Estimated 74.1 mL/min (>60); POTASSIUM 3.9 mmol/L (3.5-5.1)
[2016-07-05] MEDS ORDERED: DESYREL50 MG PO (10:56)
[2016-07-05] MEDS ORDERED: ATIVAN0.5 M1 PO (10:57)
[2016-07-05] MEDS ORDERED: LIPITOR40 MG PO (10:58)
[2016-07-05] MEDS ORDERED: COREG12.5 M1 PO (10:58)
[2016-07-05] MEDS ORDERED: LASIX20 MG PO (10:58)
[2016-07-05] MEDS ORDERED: NITROSTAT0.4 MG SL (10:59)
[2016-07-05] MEDS ORDERED: BAYER CHEWABLE81 MG PO (10:59)
[2016-07-05] MEDS ORDERED: PROTONIX40 M1 PO (11:00)
[2016-07-05] MEDS ORDERED: AUGMENTIN PO (11:00)
== END 2016-07-05 14:38 | disposition home or self-care (01) | DRG 981 ==
LOC: CED 20:07 → CEDOF 23:00 → C5C 06-30 00:20
PROVIDERS: Emergency Medicine; Family Medicine; Internal Medicine; Internal Medicine Cardiovascular Disease; Internal Medicine Gastroenterology
PROC: 4A023N7 Measurement of Cardiac Sampling and Pressure, Left Heart, Percutaneous Approach (ICD-10-PCS; principal; 2016-07-02)
PROC: B211YZZ Fluoroscopy of Multiple Coronary Arteries using Other Contrast (ICD-10-PCS; 2016-07-02)
PROC: B215YZZ Fluoroscopy of Left Heart using Other Contrast (ICD-10-PCS; 2016-07-02)
PROC: 0DB78ZX Excision of Stomach, Pylorus, Via Natural or Artificial Opening Endoscopic, Diagnostic (ICD-10-PCS; 2016-07-04)
PROC: 0W3P8ZZ Control Bleeding in Gastrointestinal Tract, Via Natural or Artificial Opening Endoscopic (ICD-10-PCS; 2016-07-04)
PROC: 0D598ZZ Destruction of Duodenum, Via Natural or Artificial Opening Endoscopic (ICD-10-PCS; 2016-07-04)
PROC: 3E0G8GC Introduction of Other Therapeutic Substance into Upper GI, Via Natural or Artificial Opening Endoscopic (ICD-10-PCS; 2016-07-04)
PROC: 0DV Gastrointestinal System, Restriction (ICD-10-PCS; 2016-07-04 14:12)
DX: I21.4 Non-ST elevation (NSTEMI) myocardial infarction (principal); K26.4 Chronic or unspecified duodenal ulcer with hemorrhage; J96.01 Acute respiratory failure with hypoxia; J69.0 Pneumonitis due to inhalation of food and vomit; I50.23 Acute on chronic systolic (congestive) heart failure; E44.0 Moderate protein-calorie malnutrition; E87.2 Acidosis; C83.33 Diffuse large B-cell lymphoma, intra-abdominal lymph nodes; Q60.0 Renal agenesis, unilateral; E87.1 Hypo-osmolality and hyponatremia; I13.0 Hypertensive heart and chronic kidney disease with heart failure and stage 1 through stage 4 chronic kidney disease, or unspecified chronic kidney disease; E03.9 Hypothyroidism, unspecified; N18.3 Chronic kidney disease, stage 3 (moderate); I25.2 Old myocardial infarction; K21.9 Gastro-esophageal reflux disease without esophagitis; F17.210 Nicotine dependence, cigarettes, uncomplicated; Z71.6 Tobacco abuse counseling; I25.10 Atherosclerotic heart disease of native coronary artery without angina pectoris; Z95.5 Presence of coronary angioplasty implant and graft; E78.5 Hyperlipidemia, unspecified; J44.9 Chronic obstructive pulmonary disease, unspecified; E53.8 Deficiency of other specified B group vitamins; F32.9 Major depressive disorder, single episode, unspecified; D64.9 Anemia, unspecified; Z82.49 Family history of ischemic heart disease and other diseases of the circulatory system; Z83.3 Family history of diabetes mellitus; Z79.51 Long term (current) use of inhaled steroids; R13.13 Dysphagia, pharyngeal phase; R13.11 Dysphagia, oral phase
CPT/HCPCS: 36415; 70450; 70491; 71010; 71275; 74177; 74230; 76942; 80048; 80053; 80061; 80076; 81003; 82330; 82550; 82553; 82607; 83540; 83550; 83615; 83735; 83880; 83935; 84300; 84439; 84443; 84484; 84550; 85025; 85027; 85610; 85730; 87040; 87077; 87806; 88305; 92526; 92610; 92611; 93005; 93306; 94640; 94760; 96361; 96374; 96375; 99285; C1769; C1887; C1894; C9113; G8996-GN; G8997-GN; G8998-GN; J0171; J1630; J1644; J1650; J1940; J2250; J2270; J2370; J2405; J2543; J2930; J3010; J3420; J3489; Q9967

== ENCOUNTER 2016-07-11 14:02 | Inpatient (IN) | payer MEDICARE ==
--- NOTE | ~2016-07-11 | CR72 ---
[facility] A Service of [facility] & [facility] RADIOLOGY TEXT RESULTS PATIENT: SOFIE COLEMAN LOCATION: [address] : [birth year] UNIT #: [id number] AGE: [address]: Monique Rascon MD SEX: M ORDER DR: [id number] [facility] [address] [place], [place] [address] [id number] I MR#: [id number] Acc #: [id number] NAME: SOFIE COLEMAN : 1960 SEX: M STUDY DATE/TIME: 07/12/2016 16:23 UNIT: [facility] ROOM: [facility] STUDY DESCRIPTION: CR Chest Single View Portable Attending Physician: Monique Rascon M.D. Ordering Physician: Monique Rascon M.D. Primary Care Physician: Phoebe Morales M.D. MEDICAL IMAGING REPORT This report is preliminary unless electronic signature is present EXAM Frontal chest 07/12/2016 INDICATIONS 56-year-old male with shortness of air. TECHNIQUE Frontal chest was performed. Correlation is made with CT 07/11/2016 FINDINGS Postop changes of median sternotomy are present. There is extensive adenopathy in the mediastinum. This is better demonstrated on the chest CT performed yesterday and not appreciably changed in the interval. Vascularity within normal limits. Interstitial and faint alveolar infiltrates in the lungs bilaterally with a mid and lower lung zone predominance on the right are present. There is no pneumothorax. At least a small right-sided effusion is present. IMPRESSION 1. Extensive mediastinal adenopathy in this patient with a known history of lymphoma. Please see CT performed 07/11/2016 for further details. 2. Interstitial and alveolar infiltrates bilaterally with a right-sided predominance. At least a small to perhaps moderate right-sided effusion that appears to be at least partially loculated. No pneumothorax. Dictated by... Ubaldo Childs M.D. THIS IS AN ELECTRONICALLY VERIFIED REPORT Ubaldo Childs M.D. at 07/12/2016 8:11 PM JORGE ALBERTO/mio [facility]. [facility] A Service of [facility] & [facility] RADIOLOGY TEXT RESULTS PATIENT: SOFIE COLEMAN LOCATION: CICCU3 CICCU3-18 : 58 UNIT #: [id number] AGE: [address]: Monique Rascon MD SEX: M ORDER DR: TD: 07/12/2016 18:28 JOB #: [id number] MEDICAL IMAGING REPORT Page 1 of 1 COPY
--- NOTE | ~2016-07-11 | US77 ---
[facility] A Service of [facility] RADIOLOGY TEXT RESULTS PATIENT: SOFIE COLEMAN LOCATION: PSYCHIATRICCU3 CICCU318 : 58 UNIT #: [id number] AGE: [address]: Monique Rascon MD SEX: M ORDER DR: [id number] [facility] [address] [place], [place] [address] [id number] I MR#: [id number] Acc #: [id number] NAME: SOFIE COLEMAN : 1960 SEX: M STUDY DATE/TIME: 07/13/2016 12:13 UNIT: [facility] ROOM: [facility] STUDY DESCRIPTION: US Kidney Bilateral Complete Attending Physician: Monique Rascon M.D. Ordering Physician: Uvaldo Parmar M.D. Primary Care Physician: Phoebe Morales M.D. MEDICAL IMAGING REPORT This report is preliminary unless electronic signature is present EXAM Renal ultrasound INDICATION Acute renal failure, GFR 47.1, BUN 51, Creatinine 1.6. PROCEDURE Garcia-scale and Doppler imaging of the kidneys and bladder. COMPARISON None. FINDINGS Right kidney is difficult to see. It measures approximately 5.6 cm. Increased parenchymal echotexture. Bladder is decompressed by a Alex catheter. Left kidney measures 11.4 cm. Slightly increased parenchymal echotexture. IMPRESSION 1. The right kidney is not well seen on this study. Exact size is difficult to determine. The submitted size is significantly asymmetric compared with the left. 2. Both kidneys show increased echotexture suggesting changes of chronic renal disease. 3. No obvious hydronephrosis. Dictated by... Shayne Vincent M.D. THIS IS AN ELECTRONICALLY VERIFIED REPORT Shayne Vincent M.D. at 07/16/2016 9:45 AM EED/aa [facility] A Service of [facility] & [facility] RADIOLOGY TEXT RESULTS PATIENT: SOFIE COLEMAN LOCATION: PSYCHIATRICCU3 PSYCHIATRICCU318 : 58 UNIT #: [id number] AGE: [address]: Monique Rascon MD SEX: M ORDER DR: TD: 07/13/2016 16:17 JOB #: [id number] MEDICAL IMAGING REPORT Page 1 of 1 COPY
--- NOTE | ~2016-07-11 | CT16 ---
[facility] A Service of [facility] & [facility] RADIOLOGY TEXT RESULTS PATIENT: SOFIE COLEMAN LOCATION: [facility] 561-01 : 58 UNIT #: [id number] AGE: [address]: BURT HOSKINS MD SEX: M ORDER DR: [id number] [facility] [address] [place] [address] [place], [place] [address] [id number] E MR#: [id number] Acc #: [id number] NAME: SOFIE COLEMAN : 1960 SEX: M STUDY DATE/TIME: 07/11/2016 17:02 UNIT: [facility] ROOM: STUDY DESCRIPTION: CT Angio Chest for PE Attending Physician: Alfonso Farley M.D. Ordering Physician: Alfonso Farley M.D. Primary Care Physician: Phoebe Morales M.D. MEDICAL IMAGING REPORT This report is preliminary unless electronic signature is present EXAM CT of the chest with contrast, PE protocol. DATE OF EXAM 07/11/2016 INDICATIONS Shortness of breath for 1 week. History of lymphoma. TECHNIQUE CT chest was performed following administration of IV contrast using the pulmonary embolism protocol. Coronal and sagittal reformatted images were obtained. NOTE: This CT exam was performed with one or more of the following radiation dose reduction techniques: automatic exposure control, adjustment of mA and/or kV according to patient size, and iterative reconstruction. COMPARISON Comparison is made with chest CT from 06/25/2016. FINDINGS There is no evidence of pulmonary embolism. Patient has multiple large mediastinal and hilar masses consistent with history of lymphoma. Measurement of the largest mass is about 10.3 x 9.5 cm. This is not significantly changed compared with the previous study. The other mediastinal and hilar masses are also not significantly changed. There has been development of bilateral pleural effusions. The pleural effusion in the right is moderate in size and the pleural effusion on the left is small in size. There are multiple enlarged retrocrural lymph nodes and lower mediastinal lymph nodes which actually appear to have enlarged. There are multiple enlarged bilateral axillary and supraclavicular lymph nodes. The axillary nodes have also increased slightly in size. Incompletely visualized left supraclavicular mass again noted. Evaluation [facility]. [facility] A Service of [facility] & [facility] RADIOLOGY TEXT RESULTS PATIENT: SOFIE COLEMAN LOCATION: C5B 561-01 : 58 UNIT #: [id number] AGE: [address]: BURT HOSKINS MD SEX: M ORDER DR: of the lungs demonstrates emphysema. There is partial atelectasis of the right lower lobe. There is also some new ground-glass opacities located in the lingula and left lower lobe which may be infectious or inflammatory. Similar appearing opacities in the posterior right upper lobe. There is also some increased interstitial thickening bilaterally. Limited imaging of the upper abdomen demonstrates multiple large retroperitoneal lymph nodes. The bone windows are unremarkable. IMPRESSION 1. Redemonstrated are multiple large mediastinal and hilar masses consistent with history of lymphoma. The masses are not significantly changed in size. There also enlarged axillary, supraclavicular retrocrural lymph nodes and these appear slightly increased in size. 2. The dominant mediastinal masses cause displacement of the trachea to the left and displacement of the SVC anteriorly with mass effect upon the SVC. These findings are both stable compared with the previous study. 3. There is no evidence for pulmonary embolism. 4. There has been development of some ground-glass infiltrates in the lungs and interstitial thickening which may be infectious or inflammatory or could be edema. 5. Development of bilateral pleural effusions, moderate in size on the right and small on the left. Dictated by... Mak Cisneros M.D. THIS IS AN ELECTRONICALLY VERIFIED REPORT Mak Cisneros M.D. at 07/12/2016 7:55 AM BAYLEE/malik TD: 07/11/2016 18:43 JOB #: [id number] MEDICAL IMAGING REPORT Page 1 of 1 COPY
--- NOTE | ~2016-07-11 | CR72 ---
[facility] A Service of [facility] RADIOLOGY TEXT RESULTS PATIENT: SOFIE COLEMAN LOCATION: [facility] : 58 UNIT #: [id number] AGE: [address]: Monique Rascon MD SEX: M ORDER DR: [id number] [facility] [address]. [place], [place] [address] [id number] I MR#: [id number] Acc #: [id number] NAME: SOFIE COLEMAN : 1960 SEX: M STUDY DATE/TIME: 07/14/2016 4:53 UNIT: [facility] ROOM: [facility] STUDY DESCRIPTION: CR Chest Single View Portable Attending Physician: Monique Rascon M.D. Ordering Physician: Morgan Morales M.D. Primary Care Physician: Phoebe Morales M.D. MEDICAL IMAGING REPORT This report is preliminary unless electronic signature is present EXAM AP portable chest 07/14/2016. HISTORY Patient on ventilator. Lymphoma. Follow up cardiopulmonary status. TECHNIQUE AP portable chest x-ray. FINDINGS The exam shows no significant change since yesterday. Endotracheal tube, left IJ central line and right IJ pulmonary artery catheter remain in good position. Feeding tube below the diaphragm. CABG. Heart size normal. Bulky adenopathy in the upper mediastinum is stable. Mild diffuse interstitial opacity throughout both lungs and small right pleural effusion with right lung base atelectasis, unchanged. IMPRESSION Stable portable chest radiograph, unchanged since yesterday. Support devices in good position. Dictated by... Aaron Choi M.D. THIS IS AN ELECTRONICALLY VERIFIED REPORT Aaron Choi M.D. at 07/14/2016 5:58 AM RGW/rnr TD: 07/14/2016 05:11 JOB #: [id number] MEDICAL IMAGING REPORT [facility] A Service of [facility] RADIOLOGY TEXT RESULTS PATIENT: SOFIE COLEMAN LOCATION: [facility] : 58 UNIT #: [id number] AGE: [address]: Monique Rascon MD SEX: M ORDER DR: Page 1 of 1 COPY
--- NOTE | ~2016-07-11 | OR ---
Unit #: [id number] #: [id number] Patient: SOFIE COLEMAN [id number] [address] [address] [id number] I MR#: [id number] NAME: SOFIE COLEMAN ROOM: [facility] Date of Procedure: 07/14/2016 Admission Date: 07/11/2016 Surgeon: Morgan Morales M.D. : 1960 Attending Physician: Monique Rascon M.D. Primary Care Physician: Phoebe Morales M.D. PROCEDURE OPERATIVE NOTE PREPROCEDURE DIAGNOSIS Renal failure. POSTPROCEDURE DIAGNOSIS Renal failure. PROCEDURE PERFORMED Right-sided dialysis catheter placement subclavian vein. INDICATION Renal failure. DETAILS OF THE PROCEDURE After taking consent from the patient's family explaining the risks and benefits, the patient placed in a proper position. With modified Seldinger technique, a triple-lumen dialysis catheter, 16 cm, placed in the right subclavian vein. Guidewire was removed in total. All three ports flushed and working. No complication happened. The patient tolerated the procedure very well. Dictated by... Ramone Oseguera/freddie TD: 07/14/2016 18:00 JOB #: [id number] PROCEDURE OPERATIVE NOTE Page 1 of 1 X Morgan Morales MD X PROCEDURE OPERATIVE NOTE
--- NOTE | ~2016-07-11 | CR71 ---
[facility] A Service of [facility] RADIOLOGY TEXT RESULTS PATIENT: SOFIE COLEMAN LOCATION: [address]18 : 58 UNIT #: [id number] AGE: [address]: Monique Rascon MD SEX: M ORDER DR: [id number] [facility] [address] [facility]. [place], [place] [address] [id number] I MR#: [id number] Acc #: [id number] NAME: SOFIE COLEMAN : 1960 SEX: M STUDY DATE/TIME: 07/13/2016 18:12 UNIT: [facility] ROOM: [facility] STUDY DESCRIPTION: CR Chest Single View Attending Physician: Monique Rascon M.D. Ordering Physician: Jere Silva M.D. Primary Care Physician: Phoebe Morales M.D. MEDICAL IMAGING REPORT This report is preliminary unless electronic signature is present EXAM Frontal chest. DATE OF EXAM 07/13/2016 INDICATIONS 56-year-old male for [place] placement. REPORT Frontal chest. COMPARISON Compared with 0413 hours. FINDINGS Left-sided central line from a neck approach terminates at the proximal SVC level. ET tube tip in good position above the praveen. Enteric tube is new and the tip is at the level of the proximal body stomach. There is a [place]-Rex catheter from a right-sided approach terminating at the main pulmonary outflow track level. Cardiomediastinal silhouette is stable. There is extensive adenopathy involving the upper mediastinum. Opacities in both lungs persist. There is a right-sided effusion with compressive atelectasis or pneumonia in the right lung base. No pneumothorax. IMPRESSION 1. [place]-Rex catheter tip is at the main pulmonary outflow track level. New enteric tube tip is at the level of the proximal body stomach. There is no pneumothorax. 2. Remaining tubes and lines in satisfactory position. 3. Right-sided diffusion and right basilar atelectasis or infiltrate [facility] A Service of [facility] RADIOLOGY TEXT RESULTS PATIENT: SOFIE COLEMAN LOCATION: [facility]3-18 : 58 UNIT #: [id number] AGE: [address]: Monique Rascon MD SEX: M ORDER DR: unchanged. Opacities in the remainder of both lungs are stable. 4. Redemonstration of adenopathy in the upper mediastinum. Dictated by... Ubaldo Childs M.D. THIS IS AN ELECTRONICALLY VERIFIED REPORT Ubaldo Childs M.D. at 07/16/2016 11:50 AM Sally TD: 07/13/2016 21:25 JOB #: [id number] MEDICAL IMAGING REPORT Page 1 of 1 COPY
--- NOTE | ~2016-07-11 | DS ---
Unit #: [id number] #: [id number] Patient: SOFIE COLEMAN [id number] [address] [address] [id number] I MR#: [id number] NAME: SOFIE COLEMAN [facility]OM: [facility] Age: 56 Sex: M Admission Date: 07/11/2016 : 1960 Discharge Date: 07/15/2016 Attending Physician: Monique Rascon M.D. Primary Care Physician: Phoebe Morales M.D. DISCHARGE SUMMARY SUMMARY DATE OF July 15, 2016, at 0313 hours. REASON FOR ADMISSION Acute hypoxic respiratory failure. HISTORY OF PRESENT ILLNESS/HOSPITAL COURSE Please see History and Physical for complete details through initial part of hospital course. Patient was placed on telemetry floor. His respiratory status began rapidly declining. He was subsequently transferred to the ICU. A consultation was placed to Dr. Morales. Subsequently, patient was sedated and placed on a ventilator. Unfortunately, he began developing multiorgan failure. Cardiology services and pulmonary services, as well as nephrology services were subsequently consulted and continued to follow the patient. Unfortunately, he did not show improvement. After discussion with patient's family, initially he was made Do Not Resuscitate on the afternoon of June () 2016, and at approximately 0300 hours on July 15, 2016, patient . Patient was placed on CRRT per nephrology services while patient was hospitalized and was on numerous pressor supports. Unfortunately, he did not respond well, and his prognosis unfortunately was very poor. Family was well aware on July 14, 2016. FINAL DISCHARGE/REASON FOR 1. Multiorgan failure. 2. Septic shock. 3. Acute hypoxic respiratory failure. 4. Acute on chronic kidney disease. 5. Stage 4 lymphoma, recent diagnosis. 1. Dictated by... Ramone Ortez/phyllis TD: 07/15/2016 22:11 JOB #: [id number] Unit #: [id number] #: [id number] Patient: SOFIE COLEMAN DISCHARGE SUMMARY Page 1 of 1 X Monique Rascon MD DISCHARGE SUMMARY
--- NOTE | ~2016-07-11 | CR72 ---
[facility] A Service of [facility] RADIOLOGY TEXT RESULTS PATIENT: SOFIE COLEMAN LOCATION: [facility] : 58 UNIT #: [id number] AGE: [address]: Alfonso Farley MD SEX: M ORDER DR: [id number] [facility] [address] [place], [place] [address] [id number] MR#: [id number] Acc #: [id number] NAME: SOFIE COLEMAN : 1960 SEX: M STUDY DATE/TIME: 07/11/2016 13:17 UNIT: [facility] ROOM: STUDY DESCRIPTION: CR Chest Single View Portable Attending Physician: Alfonso Farley M.D. Ordering Physician: Alfonso Farley M.D. Primary Care Physician: Phoebe Morales M.D. MEDICAL IMAGING REPORT This report is preliminary unless electronic signature is present EXAM Portable chest, 07/11 INDICATION Shortness of air for 1 week. History of lymphoma and throat cancer. FINDINGS AP portable chest is compared with 06/29/2016. Again seen is bulky mediastinal adenopathy. Heart size is normal. Patient is status post CABG. There is emphysema. There is increasing atelectasis or infiltrate in both mid lungs. There is a small volume of right pleural fluid. There is chronic infiltrate or atelectasis at the right base. No pneumothorax. IMPRESSION Bulky mediastinal adenopathy in keeping with a history of lymphoma. There is emphysema. Slight increase in perihilar infiltrates bilaterally, particularly on the right. There is chronic atelectasis or infiltrate at the right base. There is a trace amount of right pleural fluid. Dictated by... Jose D Ruffin Jr., M.D. THIS IS AN ELECTRONICALLY VERIFIED REPORT Jose D Ruffin Jr., M.D. at 07/11/2016 4:45 PM Addie TD: 07/11/2016 14:13 JOB #: [id number] MEDICAL IMAGING REPORT Page 1 of 1 COPY
--- NOTE | ~2016-07-11 | CO ---
Unit #: [id number] #: [id number] Patient: SOFIE COLEMAN [id number] [address] [address] [id number] I MR#: [id number] NAME: SOFIE COLEMAN ROOM: [facility]3 Age: 56 Sex: M Admission Date: 07/11/2016 : 1960 Attending Physician: Monique Rascon M.D. Primary Care Physician: Phoebe Morales M.D. Consultation Date: 07/12/2016 CONSULTATION REPORT REASON FOR EVALUATION Respiratory failure. Please evaluate. HISTORY OF PRESENT ILLNESS The patient is a 56-year-old gentleman, recently diagnosed with stage 4 lymphoma, treated for coronary artery disease and we had him scheduled for outpatient PET scan and chemotherapy. He did not make it to the office and wound up in the emergency room on the same day with increasing shortness of breath and now he appears to be in respiratory failure. We are requested to evaluate. PAST MEDICAL HISTORY 1. Coronary artery disease, status post two-vessel bypass grafting. 2. History of bjhyb-yc-lbgrmyk bronchitis. 3. Chronic obstructive pulmonary disease. 4. Hypertension. 5. Depression. 6. Hyperlipidemia. SOCIAL HISTORY Less than a pack smoking over 30 years. No alcohol usage. Lives with daughter and granddaughter. FAMILY HISTORY Negative for malignancies. Positive for hypertension. ALLERGIES No known drug allergies. CURRENT MEDICATIONS 1. Plavix. 2. Synthroid. 3. Lipitor. 4. Ripley. 5. Metoprolol. 6. Zoloft. 7. (1)* . 8. Acyclovir. REVIEW OF SYSTEMS Increasing shortness of breath, tiredness, weakness, inability to function. May be some fever, chills. No significant night sweats. Otherwise six or eight system were within normal limits. Unit #: [id number] #: [id number] Patient: SOFIE COLEMAN PHYSICAL EXAMINATION LYMPH: Bulky lymph nodes palpable in the neck, in the axilla. LUNGS: Crackles. Few rales at the right side base. HEART: Distant S1 and S2. He is definitely tachypneic. Mildly tachycardic. ABDOMEN: No palpable liver or spleen. NEUROLOGIC: Grossly intact. RECTAL: Not done. DIAGNOSTIC STUDIES LABORATORY: CBC, hemoglobin 11.1, hematocrit 36, white count 23.4, platelets 406,000. Sodium 138, potassium 4.4, chloride 107, CO2 14, glucose 137, BUN 48, creatinine 1.5. ASSESSMENT This 56-year-old gentleman with an untreated bulky stage 4 lymphoma, who was supposed to come as an outpatient for chemotherapy and PET scan could not make it to the office and wound up in the emergency room. He appears to be in respiratory failure with pzunq-oz-vrbmvjg bronchitis, chronic obstructive pulmonary disease in exacerbation type of clinical picture. From what the nurses are telling me, at this point that his lactic acid is above 4 and that they are implementing sepsis protocol, which I wholeheartedly agree with. We will follow along and if his cardiopulmonary status improves we may consider doing chemotherapy. *Report faxed to Dr. Del Rio's office on 07/16/16 for medication verification. cd Dictated by... Alex Del Rio M.D. SPS/gz TD: 07/13/2016 15:26 JOB #: [id number] CONSULTATION REPORT Page 1 of 1 X Alex Del Rio MD X CONSULTATION REPORT
--- NOTE | ~2016-07-11 | CR72 ---
[facility] A Service of [facility] & [facility] RADIOLOGY TEXT RESULTS PATIENT: SOFIE COLEMAN LOCATION: [address] : [birth year] UNIT #: [id number] AGE: [address]: Monique Rascon MD SEX: M ORDER DR: [id number] [facility] [address] [facility]. [place], [place] [address] [id number] I MR#: [id number] Acc #: [id number] NAME: SOFIE COLEMAN : 1960 SEX: M STUDY DATE/TIME: 07/14/2016 9:21 UNIT: [facility] ROOM: [facility] STUDY DESCRIPTION: CR Chest Single View Portable Attending Physician: Monique Rascon M.D. Ordering Physician: Morgan Morales M.D. Primary Care Physician: Phoebe Morales M.D. MEDICAL IMAGING REPORT This report is preliminary unless electronic signature is present EXAM Portable chest 07/14 INDICATIONS Shiley placement. Shortness of air. History of lymphoma. FINDINGS AP portable views of the chest compared with earlier today. New right subclavian Shiley tip is in the mid SVC. Troup-Rex catheter tip is in the left main PA. Left IJ line tip in the SVC. ET tube mid trachea. Widening of the mediastinum consistent with given history of lymphoma is unchanged. There is emphysema. Consolidation in the right base with right effusion also unchanged. No pneumothorax. Feeding tube in the stomach. Dictated by... Jose D Ruffin Jr., M.D. THIS IS AN ELECTRONICALLY VERIFIED REPORT Jose D Ruffin Jr., M.D. at 07/14/2016 10:49 AM LORENA/avery TD: 07/14/2016 10:20 JOB #: [id number] MEDICAL IMAGING REPORT Page 1 of 1 COPY
--- NOTE | ~2016-07-11 | CO ---
Unit #: [id number] #: [id number] Patient: SOFEI RAND [id number] [address] [address] [id number] I MR#: [id number] NAME: SOFIE RAND ROOM: [facility]3 Age: 56 Sex: M Admission Date: 07/11/2016 : 1960 Attending Physician: Monique Rascon M.D. Primary Care Physician: Phoebe Morales M.D. Consultation Date: 07/13/2016 CONSULTATION REPORT REASON FOR CONSULT Renal insufficiency. Thank you for asking us to see this patient in consultation. HISTORY OF PRESENT ILLNESS Mr. Rand is a 56-year-old male who was recently here in the hospital diagnosed with large beta cell lymphoma, although has not undergone treatment for it. He presented back to the hospital 36 hours or so with increased shortness of breath and cough. He subsequently went into respiratory distress last night and was subsequently transferred to the ICU, was intubated, was hypotensive and was started on pressors now. The patient was noted to have a creatinine upon admission of 1.3, 1.5 yesterday and 1.6 today. The patient has had some decreased urine output, although started to improve some now. The patient intermittently received diuretics as well as fluid boluses. He currently is on D5W with two and a half amps of bicarb at 200 mL/hour. He is intubated, decreased response, sedated. PAST MEDICAL HISTORY History of a newly diagnosed lymphoma, history of hypertension, history of atherosclerotic coronary artery disease status post FL in the past with a decreased EF of 45%, history of COPD, history of hypothyroidism with a TSH on 07/02/16 was 15.8, history of B12 deficiency, history of depression, history of duodenal ulcer bleeding in the past, history of hyperlipidemia. SOCIAL HISTORY Positive smoker, stopped three months ago. No alcohol. FAMILY HISTORY Not able to obtain. ALLERGIES No known drug allergies. MEDICATIONS 1. Zosyn. 2. Solu-Medrol. 3. Lovenox. 4. Vancomycin which was discontinued yesterday. 5. Eugenio-Synephrine. 6. Levophed drip. REVIEW OF SYSTEMS Unit #: [id number] #: [id number] Patient: SOFIE RAND As mentioned in the HPI, unable to obtain rest groves. PHYSICAL EXAMINATION VITAL SIGNS: His T-max now is 101. Pulse is 70 to 138. Blood pressure 80 to 132/50s to 80s. His blood pressure approximately 110 systolic now. He has had 5,314 in and 1,240 out urine groves over the last two shifts. HEENT: Normocephalic, atraumatic. Pupils are equal, round and reactive to light. Extraocular muscle are intact. Hearing appears unable to determine. Mouth: He is intubated. NECK: Supple. No adenopathy. CARDIAC: He is tachycardiac without a rub. No S3, S4. LUNGS: A few bilateral rhonchi. ABDOMEN: Bowel sounds are positive, nontender. Soft. EXTREMITIES: He has some mild cyanosis but no lower extremity swelling. NEUROLOGIC: Again, decreased response. GENITOURINARY: Alex catheter is in place. DIAGNOSTIC STUDIES LABORATORY: Sodium 142, potassium 4.6, chloride 102, bicarb 22, BUN and creatinine 51 and 1.6, glucose 152, calcium 6.4, phosphorous 5.1, magnesium 2.7, albumin 2.2. CPK 120. BNP 179. Lactic acid 4.7. TSH 15.8 on 07/02/16. Hemoglobin 10.7, white count 34,700, platelets 237,000. Troponin 0.02. UA on 06/25 shows specific gravity 1.023, although, again, that was three weeks. Trace protein at that time. IMAGING: Chest x-ray shows possible pneumonia versus fluid versus other. He did undergo CT angiogram on 07/11 that showed some small effusions and the mediastinal mass from the lymphoma and no PE, although he did receive large contrast. ASSESSMENT AND PLAN 1. Acute kidney injury. This gentleman with increasing BUN and creatinine with decreased output. Certainly, I think he could have a component of some volume depletion, although he is short of breath and I wonder if his lung is related to his lymphoma versus infection. His BNP was actually only 179 and, on physical exam, he had no obvious edema. So, I am going to keep him on his fluids but I am going to decrease the rate to 125 mL/hour. We will check a BMP later today and, again, a full set of labs in the morning. We will repeat a UA, culture and sensitivity, urine sodium, urine eosinophils. We will check renal ultrasound. Due to his worsening respiratory status and his hypotension, we will also check a 2D echo if he has not had one done the last two days. We will continue to follow and adjust as indicated. 2. Respiratory failure. 3. Lymphoma. 4. COPD. 5. Hypothyroidism. The patient was started on IV Synthroid. 6. History of recent peptic ulcer disease with duodenal ulcer bleeding. We will put him on Pepcid 20 mg IV q.24. Dictated by.Patricia Parmar M.D. PIERRE/freddie TD: 07/13/2016 13:14 Unit #: [id number] #: [id number] Patient: SOFIE RAND JOB #: [id number] CONSULTATION REPORT Page 1 of 1 X Josh Parmar MD X CONSULTATION REPORT
--- NOTE | ~2016-07-11 | A ---
[facility] Nutrition Therapy DATE: 07/13/16 Patient: SOFIE COLEMAN Physician: TONEY Address: [address] [place] [address] Room/Bed: [address], Zip: [place] [address] Admit Date: 07/11/16 Date of : [birth year] Height: 5 10 Weight: 145 66 NUTRITIONAL ASSESSMENT: REASON: Consult re: enteral nutrition recommendations Admitting Dx: 56 y/o male admitted with SOB PMH: Newly diagnosed Stage IV lymphoma, CAD, HTN, HLD, COPD, hypothyroidism Anthropometrics: Ht: 70", admission wt: 63.6 kg (140 lbs), BMI: 19 (normal), past weights: 137-151 lbs Labs: Glucose 152, BUN 51, Creat 1.6, AST 51, Phos 5.4, GFR 47.1, Na/K/Mg WNL Meds: Levophed, Phenylephrine, Versed, Fentanyl, Synthroid (IV), Pepcid, Solu-medrol I/O & Bowel function: LB 07/12 Skin Integrity: Bruises BUE, no edema Estimated Nutrition Needs: 7580-0846 kcals per day (30-35 kcals/kg) 76-89 g protein per day (1.2-1.4 g/kg) Fluids consistent with kcal needs or per MD Assessment: Chart reviewed, events noted. See admitting dx and PMH as stated above. RD previously assessed on 06/26/16 and followed up on 06/29 and 07/05- notes reviewed. Patient has Stage IV newly diagnosed lymphoma, RD diagnosed with moderate protein calorie malnutrition related to acute illness on 06/29 due to 5.5% body weight loss in 13 days and decreased oral intake < 75% of meals for > 7 days, had poor appetite during that admission but tolerated a regular diet with Ensure BID. The patient is currently being assessed per consult to provide enteral nutrition recommendations. Although he has a healthy heart diet order in place he is NPO on the vent, sedated with Versed/Fentanyl, on 2 pressors. He becomes agitated without sedation. See recs below, will follow hospital course. Dx: Inadequate protein energy intake r/t nutrition not yet initiated AEB NPO, need for EN. Intervention: EN recs as stated below Monitoring, Evaluation and Goals: 1. EN consistent with estimated nutrition needs. 2. Prevent unintentional weight loss. 3. Labs WNL (glucose, lytes, renal labs). [facility] Nutrition Therapy DATE: 07/13/16 Patient: SOFIE COLEMAN Physician: [email or web address] Address: [address] [place] [address] Room/Bed: [address], Zip: [place] [address] Admit Date: 07/11/16 Date of : 58 Height: 5 10 Weight: 145 66 Monitor: Per protocol, criteria to determine if above goals met Recommendations: 1. Once MAP > 60 mm Hg and on stable doses of vasopressor therapy for 24 hours start enteral nutrition with Osmolite 1.5 @ 20 ml/hr and increase by 10 ml q 8 hours until goal rate of 60 ml/hr is reached, to provide 2160 kcals, 90 g protein and 1094 ml water. Once at goal rate add free water flushes per MD, suggest 250 ml QID. If K/Phos become consistently elevated suggest changing to Nepro formula, goal rate 50 ml/hr provide 2160 kcals, 97 g protein and 876 ml water. Once the patient is no longer on vasopressor therapy, if he does not require the renal formula, can change to standard formula (Jevity 1.5) with goal rate of 60 ml/hr to provide 2160 kcals, 92 g protein and 1094 ml water. 2. If extubated suggest DELIVERY ARCHITECT eval if intubated for > 48 hours. Otherwise advance to high calorie/high protein diet with vanilla Ensure BID as tolerated. 3. Please weigh q 3 days for monitoring purposes. 4. Monitor glucose and lytes. Replete lytes to WNL prn. 5. Of note, during previous RD assessment on 06/29/16 the patient was diagnosed with moderate protein calorie malnutrition related to acute illness given his weight loss and decreased oral intake. RD will follow hospital course Moderate-severe nutrition risk Respectfully, Marilee Morrison, RD, LD [facility] cc: client file
--- NOTE | ~2016-07-11 | CR72 ---
[facility] A Service of [facility] & [facility] RADIOLOGY TEXT RESULTS PATIENT: SOFIE COLEMAN LOCATION: [place] [address]-18 : [birth year] UNIT #: [id number] AGE: [address]: Monique Rascon MD SEX: M ORDER DR: [id number] [facility] [address] [facility]. [place], [place] [address] [id number] I MR#: [id number] Acc #: [id number] NAME: SOFIE COLEMAN : 1960 SEX: M STUDY DATE/TIME: 07/13/2016 4:13 UNIT: [facility] ROOM: [facility] STUDY DESCRIPTION: CR Chest Single View Portable Attending Physician: Monique Rascon M.D. Ordering Physician: Morgan Morales M.D. Primary Care Physician: Phoebe Morales M.D. MEDICAL IMAGING REPORT This report is preliminary unless electronic signature is present EXAM Single view chest INDICATIONS Respiratory failure. Lymphoma. FINDINGS Single portable AP view of the chest compared to 07/12/2016 and 07/11/2016. Endotracheal tube and left IJ central line remain in place. Widening of the superior mediastinum is again noted. There is a right basilar airspace opacity and moderate right effusion. No pneumothorax. IMPRESSION No interval change. Dictated by... Raf Gonzales M.D. THIS IS AN ELECTRONICALLY VERIFIED REPORT Raf Gonzales M.D. at 07/13/2016 8:07 AM DAVIS/avery TD: 07/13/2016 07:20 JOB #: [id number] MEDICAL IMAGING REPORT Page 1 of 1 COPY
--- NOTE | ~2016-07-11 | CR7 ---
[facility] A Service of [facility] RADIOLOGY TEXT RESULTS PATIENT: SOFIE COLEMAN LOCATION: [address]18 : [birth year] UNIT #: [id number] AGE: [address]: Monique Rascon MD SEX: M ORDER DR: [id number] [facility] [address] [facility]. [place], [place] [address] [id number] I MR#: [id number] Acc #: [id number] NAME: SOFIE COLEMAN : 1960 SEX: M STUDY DATE/TIME: 07/13/2016 14:26 UNIT: [facility] ROOM: [facility] STUDY DESCRIPTION: CR Abdomen Single AP View Attending Physician: Monique Rascon M.D. Ordering Physician: Morgan Morales M.D. Primary Care Physician: Phoebe Morales M.D. MEDICAL IMAGING REPORT This report is preliminary unless electronic signature is present EXAM Abdominal radiograph. INDICATIONS Dobbhoff tube placement. PROCEDURE Supine view of the abdomen. COMPARISON 11/23/2014 FINDINGS Dobbhoff tube in the mid stomach. Nonobstructive pattern. IMPRESSION Dobbhoff tube in the mid stomach. Dictated by... Shayne Vincent M.D. THIS IS AN ELECTRONICALLY VERIFIED REPORT Shayne Vincent M.D. at 07/16/2016 9:45 AM PAPITO/malik TD: 07/13/2016 17:22 JOB #: [id number] MEDICAL IMAGING REPORT Page 1 of 1 COPY
--- NOTE | ~2016-07-11 | CR71 ---
[facility] A Service of [facility] RADIOLOGY TEXT RESULTS PATIENT: SOFIE COLEMAN LOCATION: [address]18 : [birth year] UNIT #: [id number] AGE: [address]: Monique Rascon MD SEX: M ORDER DR: [id number] [place] [address] [facility]. [place], [place] [address] [id number] I MR#: [id number] Acc #: [id number] NAME: SOFIE COLEMAN : 1960 SEX: M STUDY DATE/TIME: 07/12/2016 18:06 UNIT: [facility] ROOM: [facility] STUDY DESCRIPTION: CR Chest Single View Attending Physician: Monique Rascon M.D. Ordering Physician: Morgan Morales M.D. Primary Care Physician: Phoebe Morales M.D. MEDICAL IMAGING REPORT This report is preliminary unless electronic signature is present EXAM Portable chest radiograph. DATE OF EXAM 07/12/2016 INDICATION Intubation and central line placement. COMPARISON Comparison is made to a prior study from July 12, 2016. FINDINGS Endotracheal tube is present which terminates above the level of the praveen. Patient has a left internal jugular vein central venous line which extends to the junction of the left innominate vein, superior vena cava. Patient is status post median sternotomy with coronary artery bypass grafting. There are background emphysematous changes. Extensive alveolar and interstitial infiltrates are seen throughout both lungs, right greater than left, and these have actually worsened on the left when compared to the prior examination. This certainly could reflect multifocal pneumonia in the appropriate clinical setting. No definite pneumothorax is seen, although, the left costophrenic angle is excluded from the radiograph. Patient is noted to have a small right pleural effusion. Dictated by... Shakila Milan M.D. THIS IS AN ELECTRONICALLY VERIFIED REPORT Shakila Milan M.D. at 07/13/2016 4:41 PM [facility] A Service of [facility] RADIOLOGY TEXT RESULTS PATIENT: SOFIE COLEMAN LOCATION: CIC3 [facility]IC[facility]3-18 : 58 UNIT #: [id number] AGE: [address]: Monique Rascon MD SEX: M ORDER DR: TETE/malik TD: 07/12/2016 19:31 JOB #: [id number] MEDICAL IMAGING REPORT Page 1 of 1 COPY
--- NOTE | ~2016-07-11 | EKG ---
PATIENT: SOFIE COLEMAN UNIT #: [id number] Ventricular Rate: 133 BPM Atrial Rate: 133 BPM P-R Interval: 144 ms QRS Duration: 72 ms Q-T Interval: 308 ms QTC Calculation(Bezet): 458 ms P Cameron: 75 degrees Calculated R Cameron: 34 degrees Calculated T Cameron: 96 degrees Diagnosis Line: Sinus tachycardia Diagnosis Line: Possible Inferior infarct (cited on or before Diagnosis Line: 25-JUN-2016) Diagnosis Line: Anterolateral infarct , old Diagnosis Line: Abnormal ECG Diagnosis Line: When compared with ECG of 11-JUL-2016 12:59, Diagnosis Line: No significant change was found Diagnosis Line: Confirmed by CARINA BROUSSARD MD ([id number]) on 07/14/2016 Diagnosis Line: 6:37:29 PM INTERPRETING MD: BOBO ELLISON
--- NOTE | ~2016-07-11 | HP ---
Unit #: [id number] #: [id number] Patient: SOFIE COLEMAN [id number] [address] [address] [id number] MR#: [id number] NAME: SOFIE COLEMAN ROOM: Age: 56 Sex: M Admission Date: 07/11/2016 : 1960 Attending Physician: Alfonso Farley M.D. Primary Care Physician: Phoebe Morales M.D. HISTORY AND PHYSICAL CHIEF COMPLAINT Shortness of breath. 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 The patient was diagnosed recently and was supposed to follow with Oncology today. However, the patient presented to the emergency room with shortness of breath. The patient complains of nonproductive cough. The patient denies any fever, chills, nausea, or vomiting. The patient was found to be in acute respiratory failure. The patient had a CT of the chest that showed no pulmonary embolism and re-demonstration of the mediastinal mass, pleural effusion, and ground-glass opacity either infectious or inflammatory versus edema. The patient is being admitted for the above reasons. PAST MEDICAL HISTORY 1. Non-Hodgkin's lymphoma. 2. Coronary artery disease. 3. Hypothyroidism. 4. Hyperlipidemia. 5. Hypertension. 6. Chronic obstructive pulmonary disease. SOCIAL HISTORY Patient smoked a pack of cigarettes until three months ago with a total smoking history of greater than 60 pack years. FAMILY HISTORY Coronary artery disease. HOME MEDICATIONS 1. Zovirax. 2. Lipitor. 3. Plavix. 4. Hydrocodone. 5. Synthroid. 6. Lisinopril. 7. Zoloft. 8. Ferrous sulfate. 9. Prednisone. 10. Metoprolol. ALLERGIES Unit #: [id number] #: [id number] Patient: SOFIE COLEMAN None. REVIEW OF SYSTEMS A 14-point review of systems was performed and only pertinent positive findings are described above. The remaining are negative. PHYSICAL EXAMINATION GENERAL: Patient is sitting in a chair not in acute distress. VITAL SIGNS: Temperature 98.8, pulse 114, respiratory rate 22, blood pressure 136/102, and saturating 92% on room air. HEENT: Head atraumatic, normocephalic. Cachectic appearance. Dry mucous membranes. NECK: Supple. LUNGS: Decreased air entry at the bases. Positive for rhonchi and wheezing. HEART: Regular rate and rhythm. ABDOMEN: Soft. Positive bowel sounds. EXTREMITIES: No cyanosis, no clubbing. NEUROLOGIC: Alert, awake, and oriented. No gross focal motor deficit. DIAGNOSTIC STUDIES LABORATORY: Blood gas with pH of 7.46, PCO2 of 23, PO2 of 64, bicarb 16, and oxygen saturation 90.9. Glucose 114, BUN 51, creatinine 1.3, sodium 136, potassium 4.4, chloride 103, bicarb 15, uric acid 6.7, albumin 2.5, AST 25, ALT 26, and alkaline phosphatase 98. INR is 1.1. WBC 22.8, hemoglobin 11.8, hematocrit 37.9, platelets 438,000 and neutrophils 96.8. IMAGING: Chest x-ray shows bulky mediastinal adenopathy in keeping with history of lymphoma. There is emphysema. Slight increase in perihilar infiltrate bilaterally particularly on the right. There is chronic atelectasis or infiltrate at the right base. CT of the chest shows re-demonstration of multiple mediastinal masses, no pulmonary embolism, pleural effusions, and ground-glass opacity. ASSESSMENT 1. Pneumonia, likely postobstructive. 2. Non-Hodgkin's lymphoma. 3. Pleural effusion. PLAN Admit the patient as inpatient with telemetry. Continue with IV antibiotics with Zosyn. Will have a Pulmonary consult for right pleural effusion and Oncology consult for non-Hodgkin's lymphoma. Check the sputum cultures and repeat the labs. Will change the oral prednisone to IV steroids. Further recommendations will follow as more lab results are available. Dictated by Ramone Cristobal TD: 07/11/2016 20:37 JOB #: [id number] Unit #: [id number] #: [id number] Patient: SOFIE COLEMAN HISTORY AND PHYSICAL Page 1 of 1 X X HISTORY AND PHYSICAL
--- NOTE | ~2016-07-11 | EKG ---
PATIENT: SOFIE COLEMAN UNIT #: [id number] Ventricular Rate: 106 BPM Atrial Rate: 106 BPM P-R Interval: 124 ms QRS Duration: 84 ms Q-T Interval: 368 ms QTC Calculation(Bezet): 488 ms P [place]: 77 degrees Calculated R [place]: 9 degrees Calculated T [place]: 99 degrees Diagnosis Line: Sinus tachycardia Diagnosis Line: Inferior infarct (cited on or before 25-JUN-2016) Diagnosis Line: Anterolateral infarct (cited on or before Diagnosis Line: 25-JUN-2016) Diagnosis Line: Abnormal ECG Diagnosis Line: When compared with ECG of 02-JUL-2016 05:41, Diagnosis Line: Serial changes of Anterior infarct Present Diagnosis Line: Confirmed by CARINA BROUSSARD MD ([id number]) on 07/12/2016 Diagnosis Line: 4:57:05 AM INTERPRETING MD: BOBO ELLISON
--- NOTE | ~2016-07-11 | OR ---
Unit #: [id number] #: [id number] Patient: SOFIE COLEMAN [id number] [address] [place], [place] [address] [id number] MR#: [id number] NAME: SOFIE COLEMAN ROOM: [facility] Date of Procedure: 07/13/2016 Admission Date: 07/11/2016 Surgeon: Jere Silva M.D. : 1960 Attending Physician: Monique Rascon M.D. Primary Care Physician: Phoebe Morales M.D. OPERATIVE REPORT PROCEDURE PERFORMED Insertion of Hope-Rex catheter. INDICATION FOR PROCEDURE Monitoring of fluid status. DESCRIPTION OF PROCEDURE Under aseptic precautions, the right internal jugular vein was punctured using a Cook needle. The J-tip guidewire was advanced. An 8-Khmer Hemaquet sheath was placed in the right internal jugular vein over this guidewire. A 7.5-Khmer thermodilution Hope-Rex catheter was then inserted with hemodynamic control and its tip placed in the pulmonary artery position. Right ventricular pressure is 35/2 mmHg, pulmonary artery pressure is 28/21 mmHg with a mean pressure of 26 mmHg. IMPRESSION Successful placement of a Hope-Rex catheter for hemodynamic support via the right internal jugular vein. Dictated by... Ramone Easley/lisa TD: 07/14/2016 02:48 JOB #: [id number] OPERATIVE REPORT Page 1 of 1 X Jere Silva MD X PROCEDURE OPERATIVE NOTE
--- NOTE | ~2016-07-11 | CO ---
Unit #: [id number] #: [id number] Patient: SOFIE COLEMAN [id number] [address] [place], [place] [address] [id number] MR#: [id number] NAME: SOFIE COLEMAN ROOM: [facility] Age: 56 Sex: M Admission Date: 07/11/2016 : 1960 Attending Physician: Monique Rascon M.D. Primary Care Physician: Phoebe Morales M.D. Consultation Date: 07/12/2016 CONSULTATION REPORT REASON FOR CONSULTATION Shortness of breath. HISTORY OF PRESENT ILLNESS A 56-year-old male with a past medical history of large B-cell lymphoma with bulky mediastinal lymphadenopathy presented to the emergency room with the complaint of cough and shortness of breath. I have been asked to see the patient for pneumonia and pleural effusion. I am seeing him at the bedside. He is complaining of cough, shortness of breath, and increasing sputum production for the last two days. The symptoms have been getting worse. REVIEW OF SYSTEMS Positive for pallor. No edema, no cyanosis, no jaundice. The rest is per History of Present Illness. The rest of a 12-point review of systems has been reviewed and is negative. PAST MEDICAL HISTORY 1. Non-Hodgkin's lymphoma. 2. Coronary artery disease. 3. Hypothyroidism. 4. Dyslipidemia. 5. Hypertension. 6. Chronic obstructive pulmonary disease. SOCIAL HISTORY Smoked one pack of cigarettes per day until three months ago and has quit recently. FAMILY HISTORY Coronary artery disease. HOME MEDICATIONS 1. Zovirax. 2. Lipitor. 3. Plavix. 4. Hydrocodone. 5. Synthroid. 6. Lisinopril. 7. Zoloft. 8. Ferrous sulfate. 9. Prednisone. 10. Metoprolol. Unit #: [id number] #: [id number] Patient: SOFIE COLEMAN ALLERGIES None. PHYSICAL EXAMINATION VITAL SIGNS: Temperature 98, pulse 116, respirations 22, blood pressure 136/102, and oxygen saturation 100% on room air. NEUROLOGICAL: Awake, alert, and oriented, with no neurological deficits. HEENT: Pupils equal, round, and reactive to light and accommodation. Extraocular movements are intact. NECK: Supple. No JVD. CHEST: Bilateral air entry, bilateral mild rhonchi. GASTROINTESTINAL: Nontender and soft. Bowel sounds positive. EXTREMITIES: No edema. SKIN: No rashes and no ulcers. LYMPHATICS: No lymphadenopathy. DIAGNOSTIC STUDIES LABORATORY: Reviewed. IMAGING: Reviewed. ASSESSMENT 1. Acute hypoxic respiratory failure. 2. Acute exacerbation of chronic obstructive pulmonary disease. 3. Pneumonia. 4. Non-Hodgkin's lymphoma. 5. Pleural effusion. PLAN Admit the patient. Continue diuretics, IV antibiotic, and IV steroid. Order a stat BNP level. Will also repeat patient's blood gas. I also have ordered a procalcitonin level. Patient will be closely monitored. Please see orders for detailed plans. Thank you very much for this consultation. We will continue to monitor the patient very closely. Dictated by... Ramone Oseguera/phyllis TD: 07/12/2016 17:15 JOB #: [id number] CONSULTATION REPORT Page 1 of 1 X Morgan Morales MD X CONSULTATION REPORT
[2016-07-11 13:05] LABS: ARTERIAL BLD GAS O2 SATURATION 90.9 % (90.0-100.0); ARTERIAL BLOOD GAS CARBOXY HB 1.1 %sat (0.0-9.0); ARTERIAL BLOOD GAS HCO3 16.7 mmol/L; ARTERIAL BLOOD GAS MET HB 0.8 %sat (0.0-2.0); ARTERIAL BLOOD GAS PCO2 23.4 mmHg (35.0-45.0); ARTERIAL BLOOD GAS pH 7.461 (7.350-7.450)
[2016-07-11 13:07] LABS: ARTERIAL BLOOD GAS ALLEN TEST NORMAL; ARTERIAL BLOOD GAS PO2 64.6 mmHg (80.0-100); ARTERIAL DRAW? YES
[2016-07-11 13:08] LABS: ARTERIAL BLOOD GAS ART SITE LEFT RADIAL; ARTERIAL BLOOD GAS DELIVERY NASAL CANNULA
[2016-07-11 14:00] LABS: POC - CKMB 14.8 ng/mL (0.0-7.9); POC - TROPONIN <0.05 ng/mL (<=0.05)
[~2016-07-11 14:02] MED LIST changes: +ATIVAN0.5 M1 PO; +AUGMENTIN PO; +BAYER CHEWABLE81 MG PO; +COREG12.5 M1 PO; +DESYREL50 MG PO; +LASIX20 MG PO; +LIPITOR40 MG PO; +NITROSTAT0.4 MG SL; +PROTONIX40 M1 PO
[2016-07-11 14:16] LABS: BASOPHIL# 0.1 X10e3 (0-0.3); BASOPHIL% 0.3 % (0-2.5); EOSINOPHIL% 0.1 % (0.0-7.0); HEMATOCRIT 37.9 % (38.0-50.0); HEMOGLOBIN 11.8 gm/dL (13.0-16.0); LYMPHOCYTE# 0.3 X10e3 (1.0-3.5); LYMPHOCYTE% 1.2 % (17.0-45.0); MEAN CELL VOLUME 75.2 FL (83-96); MEAN CORPUSCULAR HEMOGLOBIN 23.4 PG (28-34); MEAN CORPUSCULAR HGB CONC 31.1 g/dL (30-36); MEAN PLATELET VOLUME 7.7 FL (6.5-11.5); MONOCYTE# 0.4 X10e3 (0-1.0); MONOCYTE% 1.6 % (3.0-12.0); NEUTROPHIL# 22.1 X10e3 (1.5-7.1); NEUTROPHIL% 96.8 % (40-75); PLATELET COUNT 438 X10e3 (140-420); RED BLOOD COUNT 5.04 X10e (3.90-5.60); RED CELL DISTRIBUTION WIDTH 19.9 % (11.0-15.5); WHITE BLOOD COUNT 22.8 X10e3 (4.0-10.5)
[2016-07-11 14:30] LABS: DIFF IND YES
[2016-07-11 14:31] LABS: ALBUMIN SERUM 2.5 g/dL (3.5-5.0); BILIRUBIN,TOTAL 0.5 mg/dL (0.2-2.0); BUN/CREATININE RATIO 39.23; CALCIUM SERUM 8.1 mg/dL (8.4-10.2); CREATININE SERUM 1.3 mg/dL (0.6-1.4); GLOM FILT RATE Estimated 60.6 mL/min (>60); POTASSIUM 4.4 mmol/L (3.5-5.1); PROTEIN TOTAL SERUM 6.5 g/dL (6.0-8.3)
[2016-07-11 14:51] LABS: PLATELET ESTIMATE NORMAL (NORMAL); RBC NORMAL YES
[2016-07-11] MEDS ORDERED: METOPROLOL SUCC25 MG PO (18:51)
[2016-07-12 07:11] LABS: BASOPHIL# 0.1 X10e3 (0-0.3); BASOPHIL% 0.6 % (0-2.5); HEMOGLOBIN 11.1 gm/dL (13.0-16.0); LYMPHOCYTE# 0.3 X10e3 (1.0-3.5); LYMPHOCYTE% 1.2 % (17.0-45.0); MEAN CELL VOLUME 76.5 FL (83-96); MEAN CORPUSCULAR HEMOGLOBIN 23.6 PG (28-34); MEAN CORPUSCULAR HGB CONC 30.9 g/dL (30-36); MEAN PLATELET VOLUME 7.7 FL (6.5-11.5); MONOCYTE# 0.5 X10e3 (0-1.0); MONOCYTE% 2.1 % (3.0-12.0); NEUTROPHIL% 96.1 % (40-75); PLATELET COUNT 406 X10e3 (140-420); RED BLOOD COUNT 4.71 X10e (3.90-5.60); RED CELL DISTRIBUTION WIDTH 20.3 % (11.0-15.5); WHITE BLOOD COUNT 23.9 X10e3 (4.0-10.5)
[2016-07-12 07:15] LABS: DIFF IND NO
[2016-07-12 07:53] LABS: CALCIUM SERUM 7.9 mg/dL (8.4-10.2); CREATININE SERUM 1.5 mg/dL (0.6-1.4); POTASSIUM 4.4 mmol/L (3.5-5.1)
[2016-07-12 15:21] LABS: ARTERIAL BLD GAS O2 SATURATION 89.1 % (90.0-100.0); ARTERIAL BLOOD GAS CARBOXY HB 0.9 %sat (0.0-9.0); ARTERIAL BLOOD GAS HCO3 16.2 mmol/L; ARTERIAL BLOOD GAS MET HB 0.8 %sat (0.0-2.0); ARTERIAL BLOOD GAS PCO2 25.1 mmHg (35.0-45.0); ARTERIAL BLOOD GAS pH 7.418 (7.350-7.450)
[2016-07-12 15:22] LABS: ARTERIAL BLOOD GAS ALLEN TEST NORMAL; ARTERIAL BLOOD GAS ART SITE RIGHT RADIAL; ARTERIAL BLOOD GAS DELIVERY NASAL CANNULA; ARTERIAL BLOOD GAS PO2 62.3 mmHg (80.0-100); ARTERIAL DRAW? YES
[2016-07-12 17:46] LABS: ALBUMIN SERUM 2.6 g/dL (3.5-5.0); BILIRUBIN,TOTAL 0.7 mg/dL (0.2-2.0); BUN/CREATININE RATIO 29.41; CALCIUM SERUM 7.9 mg/dL (8.4-10.2); CREATININE SERUM 1.7 mg/dL (0.6-1.4); GLOM FILT RATE Estimated 43.8 mL/min (>60); MAGNESIUM 2.6 mg/dL (1.6-3.0); PHOSPHOROUS 4.9 mg/dL (2.5-4.6); PROTEIN TOTAL SERUM 6.9 g/dL (6.0-8.3)
[2016-07-12 17:55] LABS: CK TOTAL 38 IU/L (36-174)
[2016-07-12 18:15] LABS: ARTERIAL BLOOD GAS ALLEN TEST NORMAL; ARTERIAL BLOOD GAS ART SITE RIGHT RADIAL; ARTERIAL BLOOD GAS CARBOXY HB 0.5 %sat (0.0-9.0); ARTERIAL BLOOD GAS DELIVERY VENT; ARTERIAL BLOOD GAS HCO3 11.9 mmol/L; ARTERIAL BLOOD GAS MET HB 0.9 %sat (0.0-2.0); ARTERIAL BLOOD GAS PCO2 27.7 mmHg (35.0-45.0); ARTERIAL BLOOD GAS VENT MODE A/C; ARTERIAL BLOOD GAS pH 7.242 (7.350-7.450); ARTERIAL DRAW? YES
[2016-07-12 20:09] LABS: ARTERIAL BLD GAS O2 SATURATION 96.5 % (90.0-100.0); ARTERIAL BLOOD GAS ALLEN TEST NORMAL; ARTERIAL BLOOD GAS ART SITE RIGHT RADIAL; ARTERIAL BLOOD GAS CARBOXY HB 0.7 %sat (0.0-9.0); ARTERIAL BLOOD GAS DELIVERY VENT; ARTERIAL BLOOD GAS HCO3 24.8 mmol/L; ARTERIAL BLOOD GAS PCO2 37.1 mmHg (35.0-45.0); ARTERIAL BLOOD GAS VENT MODE A/C; ARTERIAL BLOOD GAS pH 7.432 (7.350-7.450); ARTERIAL DRAW? YES
[2016-07-12 23:29] LABS: CK TOTAL 34 IU/L (36-174)
[2016-07-13 05:25] LABS: ARTERIAL BLD GAS O2 SATURATION 98.6 % (90.0-100.0); ARTERIAL BLOOD GAS CARBOXY HB 0.6 %sat (0.0-9.0); ARTERIAL BLOOD GAS HCO3 25.7 mmol/L; ARTERIAL BLOOD GAS MET HB 0.8 %sat (0.0-2.0); ARTERIAL BLOOD GAS PCO2 34.3 mmHg (35.0-45.0); ARTERIAL BLOOD GAS pH 7.483 (7.350-7.450)
[2016-07-13 05:35] LABS: ARTERIAL BLOOD GAS ALLEN TEST NORMAL; ARTERIAL BLOOD GAS ART SITE RIGHT RADIAL; ARTERIAL BLOOD GAS VENT MODE AC; ARTERIAL DRAW? YES
[2016-07-13 05:43] LABS: BASOPHIL% 0.1 % (0-2.5); HEMATOCRIT 34.9 % (38.0-50.0); HEMOGLOBIN 10.7 gm/dL (13.0-16.0); LYMPHOCYTE# 0.4 X10e3 (1.0-3.5); MEAN CELL VOLUME 76.4 FL (83-96); MEAN CORPUSCULAR HEMOGLOBIN 23.4 PG (28-34); MEAN CORPUSCULAR HGB CONC 30.7 g/dL (30-36); MEAN PLATELET VOLUME 7.9 FL (6.5-11.5); MONOCYTE# 0.8 X10e3 (0-1.0); MONOCYTE% 2.3 % (3.0-12.0); NEUTROPHIL# 33.5 X10e3 (1.5-7.1); NEUTROPHIL% 96.6 % (40-75); PLATELET COUNT 437 X10e3 (140-420); RED BLOOD COUNT 4.57 X10e (3.90-5.60); RED CELL DISTRIBUTION WIDTH 20.3 % (11.0-15.5); WHITE BLOOD COUNT 34.7 X10e3 (4.0-10.5)
[2016-07-13 05:54] LABS: DIFF IND NO
[2016-07-13 06:20] LABS: ALBUMIN SERUM 2.2 g/dL (3.5-5.0); BILIRUBIN,TOTAL 0.2 mg/dL (0.2-2.0); BUN/CREATININE RATIO 31.87; CALCIUM SERUM 6.4 mg/dL (8.4-10.2); CREATININE SERUM 1.6 mg/dL (0.6-1.4); GLOM FILT RATE Estimated 47.1 mL/min (>60); MAGNESIUM 2.3 mg/dL (1.6-3.0); PHOSPHOROUS 5.4 mg/dL (2.5-4.6); POTASSIUM 4.6 mmol/L (3.5-5.1); PROTEIN TOTAL SERUM 5.4 g/dL (6.0-8.3)
[2016-07-13 07:40] LABS: %MB 6.8 % (0.0-4.0); MB 8.2 ng/ml
[2016-07-13 14:39] LABS: URINE APPEARANCE CLOUDY; URINE BILIRUBIN NEG (NEG); URINE BLOOD 2+ (NEG); URINE COLOR YELLOW; URINE GLUCOSE NEG (NEG); URINE KETONE NEG (NEG); URINE LEUKOCYTE ESTERASE NEG (NEG); URINE NITRATE NEG (NEG); URINE PROTEIN 1+ (NEG); URINE SPECIFIC GRAVITY 1.031 (1.003-1.035)
[2016-07-13 14:43] LABS: BUN/CREATININE RATIO 31.76; CALCIUM SERUM 6.8 mg/dL (8.4-10.2); CREATININE SERUM 1.7 mg/dL (0.6-1.4); GLOM FILT RATE Estimated 43.8 mL/min (>60); POTASSIUM 4.7 mmol/L (3.5-5.1); URIC ACID 11.9 mg/dL (2.6-7.2)
[2016-07-13 14:45] LABS: CULTURE INDICATED? NO
[2016-07-14 00:37] LABS: ARTERIAL BLD GAS O2 SATURATION 93.9 % (90.0-100.0); ARTERIAL BLOOD GAS CARBOXY HB 0.7 %sat (0.0-9.0); ARTERIAL BLOOD GAS MET HB 0.6 %sat (0.0-2.0); ARTERIAL BLOOD GAS PCO2 57.4 mmHg (35.0-45.0); ARTERIAL BLOOD GAS PO2 91.1 mmHg (80.0-100); ARTERIAL BLOOD GAS pH 7.247 (7.350-7.450)
[2016-07-14 00:38] LABS: ARTERIAL BLOOD GAS ALLEN TEST NORMAL; ARTERIAL BLOOD GAS ART SITE RIGHT BRACHIAL; ARTERIAL BLOOD GAS DELIVERY VENT; ARTERIAL BLOOD GAS VENT MODE A/C; ARTERIAL DRAW? YES
[2016-07-14 04:21] LABS: ARTERIAL BLD GAS O2 SATURATION 96.4 % (90.0-100.0); ARTERIAL BLOOD GAS CARBOXY HB 0.8 %sat (0.0-9.0); ARTERIAL BLOOD GAS HCO3 24.6 mmol/L; ARTERIAL BLOOD GAS MET HB 0.7 %sat (0.0-2.0); ARTERIAL BLOOD GAS PCO2 40.6 mmHg (35.0-45.0); ARTERIAL BLOOD GAS pH 7.391 (7.350-7.450)
[2016-07-14 04:27] LABS: ARTERIAL BLOOD GAS ART SITE RIGHT BRACHIAL; ARTERIAL BLOOD GAS DELIVERY VENT; ARTERIAL BLOOD GAS VENT MODE A/C; ARTERIAL DRAW? YES
[2016-07-14 05:23] LABS: BASOPHIL% 0.1 % (0-2.5); HEMATOCRIT 36.2 % (38.0-50.0); HEMOGLOBIN 10.9 gm/dL (13.0-16.0); LYMPHOCYTE# 0.4 X10e3 (1.0-3.5); LYMPHOCYTE% 1.6 % (17.0-45.0); MEAN CELL VOLUME 77.3 FL (83-96); MEAN CORPUSCULAR HEMOGLOBIN 23.3 PG (28-34); MEAN CORPUSCULAR HGB CONC 30.2 g/dL (30-36); MEAN PLATELET VOLUME 7.9 FL (6.5-11.5); MONOCYTE% 3.6 % (3.0-12.0); NEUTROPHIL# 26.2 X10e3 (1.5-7.1); NEUTROPHIL% 94.7 % (40-75); PLATELET COUNT 303 X10e3 (140-420); RED BLOOD COUNT 4.68 X10e (3.90-5.60); RED CELL DISTRIBUTION WIDTH 20.8 % (11.0-15.5); WHITE BLOOD COUNT 27.6 X10e3 (4.0-10.5)
[2016-07-14 05:24] LABS: DIFF IND NO
[2016-07-14 06:37] LABS: BILIRUBIN,TOTAL 0.7 mg/dL (0.2-2.0); BUN/CREATININE RATIO 26.66; CALCIUM SERUM 6.4 mg/dL (8.4-10.2); CREATININE SERUM 2.1 mg/dL (0.6-1.4); GLOM FILT RATE Estimated 33.9 mL/min (>60); MAGNESIUM 2.4 mg/dL (1.6-3.0); PHOSPHOROUS 7.8 mg/dL (2.5-4.6); PROTEIN TOTAL SERUM 4.9 g/dL (6.0-8.3)
[2016-07-14 06:41] LABS: URIC ACID 14.6 mg/dL (2.6-7.2)
[2016-07-15 02:03] LABS: INR 2.8; PARTIAL THROMBOPLASTIN TIME 43.9 SECONDS (23.5-31.3)
[2016-07-15 02:04] LABS: PROTHROMBIN TIME (PATIENT) 30.1 SECONDS (9.6-11.5)
[2016-07-15 02:08] LABS: BUN/CREATININE RATIO 17.5; CREATININE SERUM 0.8 mg/dL (0.6-1.4); GLOM FILT RATE Estimated 99.2 mL/min (>60); MAGNESIUM 1.7 mg/dL (1.6-3.0); PHOSPHOROUS 4.2 mg/dL (2.5-4.6); POTASSIUM 4.9 mmol/L (3.5-5.1)
[2016-07-15 02:15] LABS: CALCIUM SERUM 5.4 mg/dL (8.4-10.2)
== END 2016-07-15 03:13 | disposition expired | DRG 871 ==
LOC: CED 14:02 → CEDOF 18:50 → C5B 22:45 → CICCU3 07-12 16:41
PROVIDERS: Emergency Medicine; Family Medicine; Internal Medicine; Internal Medicine Nephrology; Physician Assistant Medical
PROC: B246ZZZ Ultrasonography of Right and Left Heart (ICD-10-PCS; principal; 2016-07-11)
PROC: 02HQ32Z Insertion of Monitoring Device into Right Pulmonary Artery, Percutaneous Approach (ICD-10-PCS; 2016-07-11)
PROC: 05H533Z Insertion of Infusion Device into Right Subclavian Vein, Percutaneous Approach (ICD-10-PCS; 2016-07-11)
PROC: 0DH67UZ Insertion of Feeding Device into Stomach, Via Natural or Artificial Opening (ICD-10-PCS; 2016-07-12)
PROC: 5A1945Z Respiratory Ventilation, 24-96 Consecutive Hours (ICD-10-PCS; 2016-07-12)
PROC: 0BH17EZ Insertion of Endotracheal Airway into Trachea, Via Natural or Artificial Opening (ICD-10-PCS; 2016-07-12)
PROC: 03HB33Z Insertion of Infusion Device into Right Radial Artery, Percutaneous Approach (ICD-10-PCS; 2016-07-14)
DX: A41.9 Sepsis, unspecified organism (principal); R65.21 Severe sepsis with septic shock; J96.01 Acute respiratory failure with hypoxia; I50.21 Acute systolic (congestive) heart failure; J44.0 Chronic obstructive pulmonary disease with (acute) lower respiratory infection; I11.0 Hypertensive heart disease with heart failure; N17.9 Acute kidney failure, unspecified; J18.9 Pneumonia, unspecified organism; C83.30 Diffuse large B-cell lymphoma, unspecified site; J44.1 Chronic obstructive pulmonary disease with (acute) exacerbation; I95.9 Hypotension, unspecified; J20.9 Acute bronchitis, unspecified; Z87.891 Personal history of nicotine dependence; Z66 Do not resuscitate; I25.10 Atherosclerotic heart disease of native coronary artery without angina pectoris; Z95.1 Presence of aortocoronary bypass graft; E03.9 Hypothyroidism, unspecified; E78.5 Hyperlipidemia, unspecified; Z82.49 Family history of ischemic heart disease and other diseases of the circulatory system; Z79.02 Long term (current) use of antithrombotics/antiplatelets; Z79.52 Long term (current) use of systemic steroids; I25.2 Old myocardial infarction; F32.9 Major depressive disorder, single episode, unspecified; I34.0 Nonrheumatic mitral (valve) insufficiency; R00.0 Tachycardia, unspecified; Z51.5 Encounter for palliative care
CPT/HCPCS: 36600; 71010; 71275; 74000; 76770; 80048; 80053; 81003; 82308; 82550; 82553; 82803; 82947; 83605; 83735; 83880; 84100; 84300; 84484; 84550; 85025; 85610; 85730; 87040; 87340; 89190; 90945; 93005; 93308; 94002; 94003; 94640; 94760; 96361; 96374; 99291; J0610; J1642; J1644; J1650; J1720; J1940; J2370; J2543; J2920; J2930; J3370; J7060; Q9967